=== PATIENT | female | born 1940 | race Caucasian/White ===

== ENCOUNTER → 2017-12-12 13:13 | Outpatient (CLI) | payer MEDICARE, SELFPAY ==
[2017-12-12 13:54] LABS: Basophils # 0.1 K/mm3 (0-0.2); Basophils % 0.5 % (0.1-2.0); Eosinophils # 0.3 K/mm3 (0.0-0.4); Eosinophils % 2.4 % (0.1-12.0); Hematocrit 31.1 % (37.0-47.0); Hemoglobin 9.7 g/dL (12.2-16.2); Lymphocytes # 3.6 K/mm3 (0.7-4.5); Lymphocytes % 26.2 K/mm3 (10-50); Mean Corpuscular Hemoglobin 24.5 pg (27.0-31.2); Mean Corpuscular Volume 78.9 fl (81-99); Mean Platelet Volume 7.7 fl (7.4-10.4); Monocytes # 0.7 K/mm3 (0.1-1.0); Monocytes % 5.2 % (1.7-9.3); Neutrophils % 65.7 % (37.0-80.0); Platelet Count 584 K/mm3 (142-424); Red Blood Count 3.95 M/mm3 (4.20-5.40); Red Cell Distribution Width 15.3 % (11.5-17.5); White Blood Count 13.8 K/mm3 (4.8-10.8)
[2017-12-12 14:45] LABS: Alanine Aminotransferase 11 U/L (12-78); Albumin Level 3.3 gm/dL (3.4-5.0); Albumin/Globulin Ratio 0.9 (1.1-1.8); Alkaline Phosphatase 117 U/L (46-116); Anion Gap 10.7 mEq/L (5-15); Aspartate Amino Transferase 17 U/L (15-37); Bilirubin,Total 0.3 mg/dL (0.2-1.0); Blood Urea Nitrogen 11 mg/dL (7-18); Calcium 9.5 mg/dL (8.5-10.1); Carbon Dioxide 32 mmol/L (21.0-32.0); Chloride 105 mmol/L (98-107); Creatinine,Serum 1.27 mg/dL (0.55-1.02); Estimated Glomerular Filt Rate 41 ml/min (>60); GFR (African American) 50 ML/MIN (>60); Globulin 3.5 gm/dl (1.3-3.2); Potassium 3.7 mmoL/L (3.5-5.1); Sodium 144 mmol/L (136-145); Total Protein,Serum 6.8 gm/dL (6.4-8.2)
[2017-12-12 15:28] LABS: Glucose 49 mg/dL (74-106)
== END ==
PROVIDERS: PCP Family Medicine; Visit Provider Internal Medicine
DX: C81.90 Hodgkin lymphoma, unspecified, unspecified site (principal)
CPT/HCPCS: 36415; 80053; 85025

== ENCOUNTER → 2017-12-13 09:53 | Outpatient (CLI) | payer MEDICARE, SELFPAY ==
--- NOTE | 2017-12-13 09:58 | CT_ITS ---
CT abdomen pelvis w con CLINICAL INDICATION: ITS.REASON: HODGKINS DISEASE ORDERING PHYSICIAN: Naren Barahona MD PATIENT AGE: 77 years COMPARISON: None TECHNIQUE: Axial images obtained with sagittal and coronal reformats. PROCEDURE: Oral Contrast: Redicat IV Contrast: 75 mL Isovue-370 performed in conjunction with the chest CT . FINDINGS: The liver, gallbladder, pancreas, adrenal glands, and kidneys have an unremarkable appearance. No evidence of retroperitoneal or intraperitoneal adenopathy. No intestinal obstruction or free air. There are postsurgical changes from a prior right hemicolectomy with patent enterocolic anastomosis. There is diverticulosis of the sigmoid colon without diverticulitis. Prior hysterectomy. Unremarkable appearing urinary bladder. No pelvic mass abnormal fluid collection or adenopathy evident. No inguinal adenopathy. Atheromatous calcifications involve the aorta and its branches. Degenerative changes are present in the lumbar spine lumbar scoliosis convex left. No bony destructive process evident IMPRESSION: 1. No evidence of abdominal or pelvic adenopathy. 2. Oh surgical and nonacute findings as discussed above.
--- NOTE | 2017-12-13 09:58 | CT_ITS ---
CT chest w con HISTORY: ITS.REASON: HODGKINS DISEASE ORDERING PHYSICIAN: Naren Barahona MD PATIENT AGE: 77 years TECHNIQUE: Axial images obtained following the administration of 75 mL of Isovue 370 . Sagittal, and coronal reformatted images are also generated and reviewed. COMPARISON: None FINDINGS: There is a 12 mm isodensity in the lower pole of the thyroid gland on the left towards the isthmus. There is adenopathy in the right axillary region and infraclavicular area. Multiple lymph nodes are present measuring up to 2.6 x 1.9 cm. In addition, there is a rounded fluid density in the right axillary area measuring 4 x 3.2 cm probably related to postoperative seroma. There are few small nodes in the mediastinum. Largest cluster of nodes is in the aortopulmonic window measuring 2.2 x 1.5 cm. Normal heart size. No hilar adenopathy. Coronary artery calcifications are present. No pericardial thickening. There is a patchy area of infiltrate or atelectasis in the right lower lobe posteriorly faint nonspecific groundglass opacity is present in the superior segment of the right lower lobe medially at 8 mm. There are scattered calcified granulomas. There are degenerative changes in the thoracic spine. Degenerative changes are present at the sternoclavicular joints. No destructive bony lesion evident. IMPRESSION: 1. Right axillary adenopathy with probable postoperative seroma in the right axilla 2. Small mediastinal lymph nodes. No hilar adenopathy. 3. Atelectasis or infiltrate with faint groundglass opacity in the right lower lobe
== END ==
PROVIDERS: Family Provider Family Medicine; PCP Family Medicine; Visit Provider Internal Medicine
DX: C81.90 Hodgkin lymphoma, unspecified, unspecified site (principal)
CPT/HCPCS: 71260; 74177; Q9967

== ENCOUNTER 2017-12-18 11:05 | Outpatient (CLI) | payer MEDICARE, SELFPAY ==
[2017-12-18 11:50] VITALS: BMI 30.2
[2017-12-18 13:10] VITALS: BP 189/102; PULSE 80; RESP 18; TEMP 36.4; O2SAT 95
[2017-12-18 13:25] VITALS: BP 209/113; PULSE 84; RESP 18
[2017-12-18 13:40] VITALS: BP 203/74; PULSE 85; RESP 18
[2017-12-18 14:00] VITALS: BP 190/64; PULSE 94; RESP 18
--- NOTE | 2017-12-18 14:24 | XR_ITS ---
XR elbow RT min 3V HISTORY: ITS.REASON: FALL W/INJURY ORDERING PHYSICIAN: Naren Barahona MD PATIENT AGE: 77 years COMPARISON: None FINDINGS: No fracture or dislocation evident. Minimal hypertrophic changes are present along the lateral condyle region. There is a small anterior fat pad however this may be a normal variant. No displaced posterior fat pad is evident IMPRESSION: No acute finding
--- NOTE | 2017-12-18 14:24 | XR_ITS ---
XR knee RT 3V HISTORY: Right knee pain following injury ORDERING PHYSICIAN: Naren Barahona MD PATIENT AGE: 77 years COMPARISON: 10/15/2017 FINDINGS: There are severe osteoarthritic changes of all 3 compartments worse at the medial compartment and patellofemoral joint with chondrocalcinosis. No acute fracture or dislocation. Prominent osteophyte formation is present about the knee joint and in the superior patellar region. IMPRESSION: 1. No acute fracture. 2. Severe osteoarthritis with chondrocalcinosis
--- NOTE | 2017-12-18 14:24 | XR_ITS ---
XR knee LT 3V HISTORY: Pain following injury ORDERING PHYSICIAN: Naren Barahona MD PATIENT AGE: 77 years COMPARISON: 04/10/2016 FINDINGS: There is a total knee prosthesis present which is in good position. No acute fracture or dislocation is evident. A well-circumscribed oval lucency is present at the distal femur centrally unchanged. There is a small knee joint effusion. Periarticular calcification present as before. IMPRESSION: 1. No acute finding. 2. Prior total knee replacement with knee joint effusion
== END 2017-12-18 14:00 | disposition home or self-care (01) ==
PROVIDERS: Family Provider Family Medicine; PCP Family Medicine; Visit Provider Internal Medicine
DX: M25.561 Pain in right knee; M25.521 Pain in right elbow; Z51.11 Encounter for antineoplastic chemotherapy; C81.90 Hodgkin lymphoma, unspecified, unspecified site; M25.562 Pain in left knee
CPT/HCPCS: 73080; 73562; 96413; J9271

== ENCOUNTER 2018-01-06 10:34 | Outpatient (CLI) | payer MEDICARE, SELFPAY ==
[2018-01-06 10:53] LABS: Basophils % 0.3 % (0.1-2.0); Eosinophils # 0.1 K/mm3 (0.0-0.4); Eosinophils % 0.4 % (0.1-12.0); Hematocrit 33.1 % (37.0-47.0); Hemoglobin 9.9 g/dL (12.2-16.2); Lymphocytes # 4.6 K/mm3 (0.7-4.5); Lymphocytes % 34.6 K/mm3 (10-50); Mean Corpuscular Hemoglobin 23.3 pg (27.0-31.2); Mean Corpuscular Volume 77.5 fl (81-99); Mean Platelet Volume 8.3 fl (7.4-10.4); Monocytes # 0.7 K/mm3 (0.1-1.0); Monocytes % 4.9 % (1.7-9.3); Neutrophils # 7.9 K/mm3 (1.8-7.8); Neutrophils % 59.9 % (37.0-80.0); Platelet Count 456 K/mm3 (142-424); Red Blood Count 4.27 M/mm3 (4.20-5.40); White Blood Count 13.3 K/mm3 (4.8-10.8)
[2018-01-06 11:43] VITALS: BMI 30.2
[2018-01-06 12:15] VITALS: BP 233/92; PULSE 64; RESP 18; TEMP 36.6; O2SAT 99
[2018-01-06 12:30] VITALS: BP 233/104; PULSE 72; RESP 18
[2018-01-06 12:31] LABS: Alanine Aminotransferase 25 U/L (12-78); Albumin Level 3.5 gm/dL (3.4-5.0); Albumin/Globulin Ratio 1.1 (1.1-1.8); Alkaline Phosphatase 87 U/L (46-116); Anion Gap 6.8 mEq/L (5-15); Aspartate Amino Transferase 18 U/L (15-37); Bilirubin,Total 0.4 mg/dL (0.2-1.0); Blood Urea Nitrogen 21 mg/dL (7-18); Carbon Dioxide 37 mmol/L (21.0-32.0); Chloride 100 mmol/L (98-107); Creatinine Clearance Estimated 52 mL/min (0-300); Creatinine,Serum 1.17 mg/dL (0.55-1.02); Estimated Glomerular Filt Rate 45 ml/min (>60); GFR (African American) 54 ML/MIN (>60); Globulin 3.3 gm/dl (1.3-3.2); Glucose 96 mg/dL (74-106); Potassium 3.8 mmoL/L (3.5-5.1); Sodium 140 mmol/L (136-145); Total Protein,Serum 6.8 gm/dL (6.4-8.2)
[2018-01-06 12:34] LABS: Ferritin 21 ng/mL (8-388)
[2018-01-06 12:45] VITALS: BP 230/86; PULSE 68; RESP 18
[2018-01-06 13:00] VITALS: BP 246/86; PULSE 68; RESP 16
[2018-01-06 13:15] VITALS: BP 235/93; PULSE 69; RESP 18
[2018-01-07 08:23] LABS: Iron 38 ug/dL (27-139); UIBC 381 ug/dL (118-369)
[2018-01-08 18:18] LABS: Iron Saturation 9 % (15-55)
== END 2018-01-06 13:40 | disposition home or self-care (01) ==
LOC: INF 10:35
PROVIDERS: Family Provider Family Medicine; PCP Family Medicine; Visit Provider Internal Medicine
DX: C81.90 Hodgkin lymphoma, unspecified, unspecified site (principal); D64.9 Anemia, unspecified; Z51.11 Encounter for antineoplastic chemotherapy
CPT/HCPCS: 36415; 80053; 82728; 83550; 85025; 96413; J9271

== ENCOUNTER 2018-01-29 09:55 | Outpatient (CLI) | payer MEDICARE, SELFPAY ==
[2018-01-29 09:57] VITALS: BMI 27.0
[2018-01-29 10:24] LABS: Basophils % 0.2 % (0.1-2.0); Eosinophils % 0.3 % (0.1-12.0); Hemoglobin 9.3 g/dL (12.2-16.2); Lymphocytes # 2.1 K/mm3 (0.7-4.5); Lymphocytes % 21.7 K/mm3 (10-50); Mean Corpuscular Hemoglobin 23.7 pg (27.0-31.2); Mean Platelet Volume 7.3 fl (7.4-10.4); Monocytes # 0.2 K/mm3 (0.1-1.0); Monocytes % 1.9 % (1.7-9.3); Neutrophils # 7.5 K/mm3 (1.8-7.8); Neutrophils % 75.9 % (37.0-80.0); Platelet Count 475 K/mm3 (142-424); Red Blood Count 3.93 M/mm3 (4.20-5.40); Red Cell Distribution Width 17.6 % (11.5-17.5); White Blood Count 9.9 K/mm3 (4.8-10.8)
[2018-01-29 10:47] LABS: Alanine Aminotransferase 18 U/L (12-78); Albumin Level 3.4 gm/dL (3.4-5.0); Albumin/Globulin Ratio 0.9 (1.1-1.8); Alkaline Phosphatase 104 U/L (46-116); Anion Gap 12.3 mEq/L (5-15); Aspartate Amino Transferase 5 U/L (15-37); Bilirubin,Total 0.3 mg/dL (0.2-1.0); Blood Urea Nitrogen 18 mg/dL (7-18); Calcium 8.9 mg/dL (8.5-10.1); Carbon Dioxide 32 mmol/L (21.0-32.0); Chloride 97 mmol/L (98-107); Creatinine Clearance Estimated 37 mL/min (0-300); Creatinine,Serum 1.49 mg/dL (0.55-1.02); Estimated Glomerular Filt Rate 34 ml/min (>60); Ferritin 22 ng/mL (8-388); GFR (African American) 41 ML/MIN (>60); Globulin 3.8 gm/dl (1.3-3.2); Glucose 275 mg/dL (74-106); Potassium 4.3 mmoL/L (3.5-5.1); Sodium 137 mmol/L (136-145); Total Protein,Serum 7.2 gm/dL (6.4-8.2)
[2018-01-29 12:15] VITALS: BP 154/72; PULSE 78; RESP 20; TEMP 36.5
[2018-01-29 12:30] VITALS: BP 150/67; PULSE 81; RESP 20
[2018-01-29 12:45] VITALS: BP 163/62; PULSE 76; RESP 18
[2018-01-29 13:00] VITALS: BP 163/62; PULSE 76; RESP 18
[2018-01-30 07:19] LABS: Iron 35 ug/dL (27-139); UIBC 377 ug/dL (118-369)
[2018-01-30 11:54] LABS: Iron Saturation 8 % (15-55)
== END 2018-01-29 13:00 | disposition home or self-care (01) ==
LOC: INF 09:55
PROVIDERS: Family Provider Family Medicine; PCP Family Medicine; Visit Provider Internal Medicine
DX: Z51.11 Encounter for antineoplastic chemotherapy (principal); C81.90 Hodgkin lymphoma, unspecified, unspecified site
CPT/HCPCS: 80053; 82728; 83550; 85025; 96413; J9271

== ENCOUNTER → 2018-02-21 07:25 | Day surgery (SDC) | payer MEDICARE, SELFPAY ==
[2018-02-19 13:09] VITALS: BMI 30.5
--- NOTE | 2018-02-21 08:23 | SUR.PREOP ---
Surgery cancelled today due to plavix not being held. Spoke with Dr. Naylor' office about plavix and he OK'D patient to hold plavix for 5 days prior to surgery. Office to send clearance note. Spoke with Dr. Schulz's office about rescheduling patient's surgery for Saturday () so that patient can receive her treatment that day. Adelina is to call back. Patient dressed and wants to go home. discussed with patient about going off plavix for 5 days and told her I would notify her of rescheduled surgery time.
== END ==
PROVIDERS: Family Provider Family Medicine; PCP Family Medicine; Visit Provider Surgery
DX: Z53.8 Procedure and treatment not carried out for other reasons (principal)

== ENCOUNTER 2018-02-26 06:03 | Day surgery (SDC) | payer MEDICARE, SELFPAY ==
[2018-02-26] VITALS (21 sets, daily range): BP systolic 113–232; BP diastolic 51–105; PULSE 77–98; RESP 16–20; TEMP 36.3–36.6; O2SAT 95–100; BMI 30.5
[2018-02-26 07:03] LABS: Basophils # 0.1 K/mm3 (0-0.2); Basophils % 0.5 % (0.1-2.0); Eosinophils # 0.2 K/mm3 (0.0-0.4); Eosinophils % 2.1 % (0.1-12.0); Hematocrit 27.7 % (37.0-47.0); Hemoglobin 8.9 g/dL (12.2-16.2); Lymphocytes # 2.6 K/mm3 (0.7-4.5); Lymphocytes % 25.5 K/mm3 (10-50); Mean Corpuscular Hemoglobin 25.6 pg (27.0-31.2); Mean Corpuscular Volume 79.8 fl (81-99); Mean Platelet Volume 7.8 fl (7.4-10.4); Monocytes # 0.5 K/mm3 (0.1-1.0); Monocytes % 4.6 % (1.7-9.3); Neutrophils # 6.9 K/mm3 (1.8-7.8); Neutrophils % 67.4 % (37.0-80.0); Platelet Count 384 K/mm3 (142-424); Red Blood Count 3.47 M/mm3 (4.20-5.40); Red Cell Distribution Width 19.3 % (11.5-17.5); White Blood Count 10.2 K/mm3 (4.8-10.8)
[2018-02-26 07:18] LABS: POC Glucose,Bedside 117 mg/dL (70-110)
--- NOTE | 2018-02-26 07:28 | P.PN_ITS ---
[facility] Anesthesia Checklist - Patient Identification Patient Identification: Arm Band - Structural Data Admitted From: Home Planned Operative Procedure/s: port a cath placement Consent for Planned Operative Procedure(s) Verified: Yes Verified Documents: Surgical Consent, History and Physical - NPO Status Verified Time NPO: 00:00 - Additional verifications Anesthesia Reactions: No - Airway Assessment C-Spine Mobility Assessed: Yes (mp2) TMJ Mobility Assessed: Yes - Neurological Assessment Level of Consciousness: Awake, Alert - Anesthesia Plan Anesthesia Risk discussed: Yes Anesthesia Plan: Verified ASA Class: III Anesthesia Type: General [facility] Anesthesia HX I have reviewed the patient's past medical history: Yes Medical History: Reports:: Arrhythmia, Atrial Fibrillation, Cancer (COLON), Cerebrovascular Accident, Diabetes Mellitus Type 2, Hyperlipidemia, Hypertension , Migraine, Transient Ischemic Attacks (TIA) Denies:: Diabetes Mellitus Type 1, MRSA, Seizures Other Medical History: Reports: Arthritis, Cataracts, Chemotherapy. Denies: Blood Transfusion Reaction Laterality Cases: Right: Carpal Tunnel Release, Lumpectomy, Bilateral: Tonsillectomy Other Surgeries: Yes: Cancer Surgery, Colonoscopy, EGD, Hysterectomy-Total Amputation: No Fractures: No *Family Hx:: Asthma, Cancer, Coronary Artery Disease, Heart Attack, Hypertension , Kidney Disease
[2018-02-26 07:34] LABS: Alanine Aminotransferase 20 U/L (12-78); Albumin Level 3.2 gm/dL (3.4-5.0); Albumin/Globulin Ratio 0.8 (1.1-1.8); Alkaline Phosphatase 90 U/L (46-116); Anion Gap 9.8 mEq/L (5-15); Aspartate Amino Transferase 11 U/L (15-37); Bilirubin,Total 0.3 mg/dL (0.2-1.0); Blood Urea Nitrogen 16 mg/dL (7-18); Carbon Dioxide 31 mmol/L (21.0-32.0); Chloride 103 mmol/L (98-107); Creatinine Clearance Estimated 49 mL/min (0-300); Creatinine,Serum 1.25 mg/dL (0.55-1.02); Estimated Glomerular Filt Rate 42 ml/min (>60); GFR (African American) 50 ML/MIN (>60); Globulin 3.8 gm/dl (1.3-3.2); Glucose 124 mg/dL (74-106); Potassium 3.8 mmoL/L (3.5-5.1); Sodium 140 mmol/L (136-145)
--- NOTE | 2018-02-26 08:07 | FL_ITS ---
FL guided PICC placement CLINICAL INDICATION: ITS.REASON: IN OR, PORT PLACENEMT ORDERING PHYSICIAN: Ahsan Schulz MD PATIENT AGE: 77 years Fluoroscopy time: 1 minute and 15 seconds COMPARISON: None FINDINGS: Single image submitted with the C-arm shows the Port-A-Cath tip in the region superior vena cava IMPRESSION: Status post Port-A-Cath placement
--- NOTE | 2018-02-26 08:52 | P.OP_ITS ---
Date of procedure: 02/26/18 Pre-op Diagnosis:: Lymphoma Post-op Diagnosis:: Same Procedure performed:: Port-A-Cath placement (left subclavian vein access) Surgeon:: Ahsan Schulz MD CUSTOMER SUPPORT ADVISOR:: Other Anesthesia: LMA Estimated blood loss (mL): 10 Operative findings:: Tip confirmed with fluoroscopy Flushed with 8 mL of heparinized saline Operative note:: After informed consent was obtained, the patient was taken to the operating room and placed in the supine position. General anesthesia with laryngeal mask airway was achieved. The patient's left chest and neck were prepped and draped in a sterile fashion. A large bore needle was utilized to access the left subclavian vein. A guidewire was placed in position and confirmed with fluoroscopy. Transverse skin incision was made at the site of the guidewire exit. The deeper subcutaneous tissue was dissected with electrocautery. A dilator with sheath was placed over the guidewire. Fluoroscopy was utilized to confirm placement. The wire and dilator were removed. The catheter was placed in position through the sheath and confirmed with fluoroscopy. The catheter was secured to the port hub. The port hub was secured to the underlying fascia with interrupted Prolene. The port was flushed with saline without difficulty. The deep subcutaneous tissue was reapproximated with interrupted Vicryl and skin was closed with 4-0 Monocryl in an interrupted fashion. The port was accessed and then flushed with 8 mL of heparinized saline. Washings were applied and the port access was maintained for chemotherapy later today. The patient was transferred to recovery in stable condition. Chest x-rays pending. Condition: stable Disposition: PACU Complications:: No immediate
--- NOTE | 2018-02-26 09:01 | P.PN_ITS ---
[facility] Anesthesia Record Part I Intake, IV Amount: 500 Estimated blood loss (mL): 10 Urine output (mL): 0 Blood Products used (#): none Blood Pressure: 160/77 SaO2: 95 Pulse Rate: 88 Respiratory Rate: 16 Temperature: 97.8 F Patient is:: Awake Stable to PACU at:: 08:53
--- NOTE | 2018-02-26 09:01 | HMH.ANESII ---
[facility] Anesthesia Record Part II Discharge Time: 09:23 Destination: Phase II PACU nurse assessment reviewed?: Yes Patient Condition:: Good Anesthesia Complications:: None
[2018-02-26 09:28] LABS: POC Glucose,Bedside 98 mg/dL (70-110)
--- NOTE | 2018-02-26 10:11 | XR_ITS ---
XR chest portable HISTORY: ITS.REASON: post op portacath placement ORDERING PHYSICIAN: Ahsan Schulz MD PATIENT AGE: 77 years COMPARISON: 10/15/2017 FINDINGS: Left subclavian Port-A-Cath has been placed. The tip is in good position in the region of the superior vena cava. No evidence of pneumothorax. Lungs are clear bilaterally. No acute bony anomalies. IMPRESSION: Left subclavian Port-A-Cath in good position without evidence of pneumothorax
--- NOTE | 2018-02-26 10:39 | PC.NURSE ---
0915-Notified anesthesia of elevated BP, order received for Hydralazine 10mg IV now. 09-FSBS 98. 929-Notified Dr Schulz of pt c/o chronic pain and she hasn't taken home meds for 2 days. Orders received for her to take home meds in post-op. 40-Anesthesia notified of no improvement in BP, pt c/o chronic pain to BLE and lower back rating 8/10, and FSBS. Orders received for Fentanyl 50mcg and repeat Hydralazine 10mg 30min after first dose. 1000-Notified anesthesia of BP improvement 173/79 and no improvement in pain level. Anesthesia ok for d/c to post-op and home meds given for pain.
--- NOTE | 2018-02-26 15:46 | PC.NURSE ---
After chemo infusion finished, patient's port-a-cath to left chest deaccessed. I used 1 10ml saline flush and 1 5ml Heparin flush 500 units flush to cap off port. Owen needle removed easily. Site was bruised, no active bleeding noted. New sterile dressing applied of 4x4's and tegaderm. Patient educated to remove dressing in 48 hours and monitor for signs of infection. Patient tolerated the removal of the port-a-cath needle well. Denied pain/distress. Saline Flush and Heparin flush given at 1345.
== END 2018-02-26 13:50 | disposition home or self-care (01) ==
LOC: OR 06:06
PROVIDERS: Family Provider Family Medicine; PCP Family Medicine; Visit Provider Surgery
DX: C81.24 Mixed cellularity Hodgkin lymphoma, lymph nodes of axilla and upper limb (principal); Z79.4 Long term (current) use of insulin; Z79.899 Other long term (current) drug therapy; E11.9 Type 2 diabetes mellitus without complications; I10 Essential (primary) hypertension; I48.91 Unspecified atrial fibrillation
CPT/HCPCS: 36561; 71045; 77001; 80053; 82962; 85025; 96374; 96413; C1788; J1642; J2405; J9271

== ENCOUNTER → 2018-03-06 12:18 | Outpatient (CLI) | payer MEDICARE, SELFPAY ==
[2018-03-06 12:18] VITALS: BMI 27.8
[2018-03-06 13:23] LABS: Basophils # 0.1 K/mm3 (0-0.2); Basophils % 0.5 % (0.1-2.0); Eosinophils # 0.2 K/mm3 (0.0-0.4); Eosinophils % 2.2 % (0.1-12.0); Hematocrit 29.9 % (37.0-47.0); Hemoglobin 9.1 g/dL (12.2-16.2); Lymphocytes # 2.7 K/mm3 (0.7-4.5); Lymphocytes % 26.4 K/mm3 (10-50); Mean Corpuscular HGB Conc 30.6 g/dL (31.8-35.4); Mean Corpuscular Hemoglobin 25.4 pg (27.0-31.2); Mean Corpuscular Volume 83.1 fl (81-99); Mean Platelet Volume 7.3 fl (7.4-10.4); Monocytes # 0.5 K/mm3 (0.1-1.0); Monocytes % 4.7 % (1.7-9.3); Neutrophils # 6.7 K/mm3 (1.8-7.8); Neutrophils % 66.2 % (37.0-80.0); Platelet Count 384 K/mm3 (142-424); Red Cell Distribution Width 19.9 % (11.5-17.5); White Blood Count 10.1 K/mm3 (4.8-10.8)
[2018-03-06 14:11] LABS: Alanine Aminotransferase 13 U/L (12-78); Albumin Level 3.2 gm/dL (3.4-5.0); Albumin/Globulin Ratio 0.9 (1.1-1.8); Alkaline Phosphatase 94 U/L (46-116); Anion Gap 11.6 mEq/L (5-15); Aspartate Amino Transferase 11 U/L (15-37); Bilirubin,Total 0.3 mg/dL (0.2-1.0); Blood Urea Nitrogen 17 mg/dL (7-18); Calcium 8.7 mg/dL (8.5-10.1); Carbon Dioxide 33 mmol/L (21.0-32.0); Chloride 98 mmol/L (98-107); Creatinine Clearance Estimated 34 mL/min (0-300); Creatinine,Serum 1.63 mg/dL (0.55-1.02); Estimated Glomerular Filt Rate 31 ml/min (>60); GFR (African American) 37 ML/MIN (>60); Globulin 3.6 gm/dl (1.3-3.2); Glucose 149 mg/dL (74-106); Potassium 3.6 mmoL/L (3.5-5.1); Sodium 139 mmol/L (136-145); Total Protein,Serum 6.8 gm/dL (6.4-8.2)
== END ==
PROVIDERS: Family Provider Family Medicine; PCP Family Medicine; Visit Provider Nurse Practitioner Family
DX: L03.115 Cellulitis of right lower limb (principal)
CPT/HCPCS: 36415; 71250; 74176; 80053; 85025

== ENCOUNTER 2018-05-12 14:02 | Outpatient (CLI) | payer MEDICARE, SELFPAY ==
--- NOTE | 2018-05-12 15:28 | CT_ITS ---
CT chest w con HISTORY: Follow-up lymphoma ITS.REASON: HODGKINS LYMPHOMA ORDERING PHYSICIAN: Naren Barahona MD PATIENT AGE: 78 years COMPARISON: 03/06/2018 TECHNIQUE: Axial images obtained following the administration of 75 mL of Isovue 370 . Sagittal, and coronal reformatted images are also generated and reviewed. All CT scans at the facility use one or more dose reduction, viz: automated exposure control; ma/kV adjustment per patient size (including targeted exams where dose is matched to indication; i.e. head); or iterative reconstruction technique. FINDINGS: There is a nodular area in the isthmus of the thyroid gland on the left and 8 mm not significantly changed. Scattered small mediastinal lymph nodes are stable. There are coronary artery calcifications. Mediport catheter is present from left subclavian approach. No hilar adenopathy. There is a small nodes deep to the medial aspect of the pectoralis major which is slightly larger compared to the previous study measuring approximately 17 x 11 mm previously 11 x 9 mm.. There is an additional node in the right axilla more inferior which measures 18 x 13 mm previously 15 x 11 mm. Postsurgical changes are present in the right axilla. No adenopathy evident in the left axilla. There are calcified granulomas in the lungs. Fibrotic changes are present in the right lower lobe posteriorly. A small nodular density is present in the right lower lobe medially have an a bilobular appearance measuring 9 x 6 mm probably not significantly changed. No effusions or infiltrates. IMPRESSION: 1. There are at least 2 right axillary lymph nodes which are slightly larger compared to the previous study. 2. No other significant changes. Stable right lower lobe nodule with fibrotic changes in the right lower lobe and old granulomatous disease.
--- NOTE | 2018-05-12 15:32 | CT_ITS ---
CT abdomen w con CLINICAL INDICATION: Follow-up lymphoma ITS.REASON: HODGKINS LYMPHOMA ORDERING PHYSICIAN: Naren Barahona MD PATIENT AGE: 78 years COMPARISON: 03/06/2018 TECHNIQUE: Axial images obtained with sagittal and coronal reformats. All CT scans at the facility use one or more dose reduction, viz: automated exposure control; ma/kV adjustment per patient size (including targeted exams where dose is matched to indication; i.e. head); or iterative reconstruction technique. PROCEDURE: Oral Contrast: Redicat IV Contrast: 75 mL's of Isovue-370 performed in conjunction with the chest CT. FINDINGS: The liver, gallbladder, spleen, adrenal glands, pancreas and kidneys have an unremarkable appearance. There is mild retroperitoneal adenopathy. There is a node present in the aortocaval region measuring 18 x 11 mm previously measuring 9 x 7 mm. Left para-aortic lymph nodes are present measuring up to 17 x 11 mm previously measuring 14 x 9 mm. A chain small lymph nodes present in the left retroperitoneal region and a more prominent on today's exam compared to the previous study.. This chain of nodes extends for a length of approximately 6 cm. No intra-abdominal adenopathy evident. Degenerative changes are present in the lumbar spine. IMPRESSION: Mildly enlarged retroperitoneal lymph nodes are present on the left and have increased in size since previous exam.
[2018-05-12 15:45] LABS: Blood Urea Nitrogen 19 mg/dL (7-18); Creatinine,Serum 1.34 mg/dL (0.55-1.02); Estimated Glomerular Filt Rate 38 ml/min (>60); GFR (African American) 46 ML/MIN (>60)
[2018-05-12 16:00] VITALS: BMI 27.7
[2018-05-12 16:30] LABS: Basophils # 0.1 K/mm3 (0-0.2); Basophils % 0.8 % (0.1-2.0); Eosinophils # 0.5 K/mm3 (0.0-0.4); Eosinophils % 5.2 % (0.1-12.0); Hematocrit 28.2 % (37.0-47.0); Hemoglobin 8.7 g/dL (12.2-16.2); Lymphocytes # 2.7 K/mm3 (0.7-4.5); Lymphocytes % 26.7 K/mm3 (10-50); Mean Corpuscular HGB Conc 30.7 g/dL (31.8-35.4); Mean Corpuscular Hemoglobin 25.2 pg (27.0-31.2); Mean Platelet Volume 7.2 fl (7.4-10.4); Monocytes # 0.6 K/mm3 (0.1-1.0); Monocytes % 5.8 % (1.7-9.3); Neutrophils # 6.2 K/mm3 (1.8-7.8); Neutrophils % 61.5 % (37.0-80.0); Platelet Count 577 K/mm3 (142-424); Red Blood Count 3.44 M/mm3 (4.20-5.40); Red Cell Distribution Width 15.7 % (11.5-17.5); White Blood Count 10.1 K/mm3 (4.8-10.8)
== END 2018-05-12 16:10 | disposition home or self-care (01) ==
PROVIDERS: PCP Family Medicine; Visit Provider Internal Medicine
DX: C81.90 Hodgkin lymphoma, unspecified, unspecified site (principal)
CPT/HCPCS: 71260; 74160; 82565; 84520; 85025; J1642

== ENCOUNTER 2018-05-14 12:30 | Outpatient (CLI) | payer MEDICARE, SELFPAY ==
[2018-05-14 13:30] VITALS: BP 138/39; PULSE 86; RESP 20; TEMP 36.3; O2SAT 98
[2018-05-14 13:45] VITALS: BP 117/35; PULSE 86; RESP 18
[2018-05-14 14:00] VITALS: BP 108/34; PULSE 85; RESP 18
== END 2018-05-14 15:10 | disposition home or self-care (01) ==
LOC: INF 12:42
PROVIDERS: Family Provider Family Medicine; PCP Family Medicine; Visit Provider Internal Medicine
DX: Z51.11 Encounter for antineoplastic chemotherapy (principal); C81.24 Mixed cellularity Hodgkin lymphoma, lymph nodes of axilla and upper limb
CPT/HCPCS: 96413; J9271

== ENCOUNTER 2018-06-05 19:53 | Inpatient (IN) ==
[2018-06-05 20:41] LABS: Microscopic, Urine URINE MICROSCOPIC (MICROSCOPIC)
--- NOTE | 2018-06-05 20:44 | Emergency Department Note ---
ED Disposition Clinical Impression: Hypokalemia Leukocytosis Qualifiers: Leukocytosis type: unspecified Qualified Code(s): D72.829 - Elevated white blood cell count, unspecified Anemia Qualifiers: Anemia type: other cause Other causes of anemia: other cause, not classified Qualified Code(s): D64.89 - Other specified anemias Non-Hodgkin lymphoma Qualifiers: Non-Hodgkin lymphoma type: unspecified type Lymphoma site: unspecified region Qualified Code(s): C85.90 - Non-Hodgkin lymphoma, unspecified, unspecified site Disposition: Admitted As Inpatient Condition on Discharge: Fair Time of Disposition: 22:07 - Critical Care Critical Care Time: Yes Attestation: On 06/05/18, the high probability of a clinically significant, sudden or life threatening deterioration of the following system(s) required my full and direct attention, intervention and personal management. The time I documented below is in addition to time spent performing reported procedures but includes the following listed in this critical care notation. Total Critical Care Time: 90 Vital system(s) involved:: Circulatory Failure, Renal Failure My critical care processes included: Assessment & monitoring of V/S, Initial and Re-exams, Data Review/Interpretation, Coordinating Care, Medication Orders and management, Documentation Medical Decision Making - Medical Records Medical records reviewed: Yes: I reviewed the patient's medical records. - Isidoro Inquiry Pt receiving controlled substance: No Vital Signs: 06/05/18 19:54 06/05/18 20:24 06/05/18 20:56 Temperature 98.8 F 98.8 F 98.7 F Temperature Source Oral Rectal Oral Pulse Rate Pulse Rate [Left Brachial] 90 91 H 98 H Respiratory Rate 16 18 16 Blood Pressure Blood Pressure [Left Arm] 114/52 126/60 116/74 Blood Pressure Mean [Left Arm] 72 82 88 02 Sat by Pulse Oximetry 95 92 L 95 Oxygen Delivery Method Nasal Cannula Room Air Room Air Oxygen Flow Rate (LPM) 2 06/05/18 21:46 06/05/18 22:24 06/05/18 22:32 Temperature 98.8 F 98.9 F Temperature Source Oral Oral Pulse Rate 103 H Pulse Rate [Left Brachial] 99 H 103 H Respiratory Rate 16 16 18 Blood Pressure 109/70 Blood Pressure [Left Arm] 153/93 115/70 Blood Pressure Mean [Left Arm] 113 85 02 Sat by Pulse Oximetry 97 96 Oxygen Delivery Method Nasal Cannula Nasal Cannula Nasal Cannula Oxygen Flow Rate (LPM) 2 2 2 06/05/18 23:16 Temperature Temperature Source Pulse Rate Pulse Rate [Left Brachial] 100 H Respiratory Rate 16 Blood Pressure Blood Pressure [Left Arm] 101/73 Blood Pressure Mean [Left Arm] 82 02 Sat by Pulse Oximetry 94 L Oxygen Delivery Method Oxygen Flow Rate (LPM) - Lab Data Lab results reviewed: Yes: I reviewed the patient's lab results. Lab Results 06/05/18 20:20: WBC 23.7 H*, RBC 3.06 L, Hgb 7.3 L*, Hct 24.7 L, MCV 80.5 L, MCH 24.0 L, MCHC 29.8 L, RDW 15.9, Plt Count 650 H, MPV 8.2, Neut % (Auto) 84.5 H, Lymph % (Auto) 11.3, [place] % (Auto) 3.7, Eos % (Auto) 0.3, Baso % (Auto) 0.2, Neut # (Auto) 20.0 H, Lymph # (Auto) 2.7, [place] # (Auto) 0.9, Eos # (Auto) 0.1, Baso # (Auto) 0.1, Total Counted 100, Neutrophils % (Manual) 85 H, Lymphocytes % (Manual) 12, Monocytes % (Manual) 3, Platelet Estimate Slight increase, Hypochromasia 1+ 06/05/18 20:20: Sodium 136, Potassium 2.7 L*, Chloride 98, Carbon Dioxide 28, Anion Gap 12.7, BUN 44 H, Creatinine 1.99 H, Estimated Creat Clear 31, Estimated GFR 24 L, Est GFR ( Amer) 29 L, Glucose 131 H, Calcium 8.4 L, Total Bilirubin 0.9, AST 17, ALT 10 L, Alkaline Phosphatase 122 H, Troponin I < 0.02, Total Protein 6.7, Albumin 2.0 L, Globulin 4.7 H, Albumin/Globulin Ratio 0.4 L 06/05/18 20:20: Lactic Acid 0.8 06/05/18 20:20: B-Natriuretic Peptide 75 06/05/18 20:30: Urine Color Yellow, Urine Appearance Clear, Urine pH 5.5, Ur Specific [place] 1.020, Urine Protein Trace, Urine Glucose (UA) Negative, Urine Ketones Negative, Urine Blood Negative, Urine Nitrate Negative, Urine Bilirubin Negative, Urine Urobilinogen 1.0, Ur Leukocyte Esterase Negative, Urine RBC None , Urine WBC 3-5, Ur Squamous Epith Cells Occasional, Urine Bacteria 2+, Hyaline Casts 10-20 06/05/18 22:35: Blood Type O Negative, Antibody Screen Negative, Crossmatch (AHG ) See Detail 06/05/18 22:35: Crossmatch (AHG) See Detail Result diagrams: 06/05/18 20:20 06/05/18 20:20 Orders (Tests/Meds): ED MEDICATIONS Generic Name Dose Route Start Last Admin Trade Name Freq PRN Reason Stop Dose Admin Aspirin 81 mg 06/06/18 09:00 Aspirin 81mg Enteric Coated Tablet PO 07/06/18 08:59 DAILY [facility] Carvedilol 3.125 mg 06/06/18 09:00 Coreg 3.125mg Tablet PO 07/06/18 08:59 BID [facility] Clopidogrel Bisulfate 75 mg 06/06/18 09:00 Plavix 75mg Tablet PO 07/06/18 08:59 DAILY [facility] Cyclobenzaprine HCl 10 mg 06/05/18 23:54 Flexeril 10mg Tablet PO 07/05/18 23:53 TID PRN muscle spasm Diazepam 10 mg 06/06/18 09:00 Valium 10mg Tablet PO 07/06/18 08:59 TID [facility] Diphenoxylate HCl/Atropine mg 06/05/18 23:54 Lomotil 2.5mg Tablet PO 07/05/18 23:53 QIDP PRN diarrhea Furosemide 40 mg 06/06/18 09:00 Lasix 20mg Tablet PO 07/06/18 08:59 DAILY [facility] Gabapentin 300 mg 06/06/18 09:00 Neurontin 300mg Capsule PO 07/06/18 08:59 TID [facility] Sodium Chloride 250 mls @ 25 mls/hr 06/05/18 23:54 Sod Chlor 0.9% 250ml Bag IV 06/06/18 21:29 .Q10H [facility] Levofloxacin/Dextrose 250 mg in 50 mls @ 100 mls/hr 06/07/18 21:45 Levaquin 250mg/50ml Premix IV 06/21/18 21:44 Q48H [facility] Protocol Sodium Chloride 1,000 mls @ 250 mls/hr 06/05/18 23:54 Sod Chlor 0.9% 1000ml Bag IV 06/06/18 02:29 .Q4H [facility] Piperacillin Sod/Tazobactam 50 mls @ 100 mls/hr 06/06/18 03:30 Sod 2.25 gm/ Sodium Chloride IV 06/19/18 21:29 Q6H [facility] Protocol Sodium Chloride 1,000 mls @ 50 mls/hr 06/05/18 23:54 06/05/18 23:54 Sod Chlor 0.9% 1000ml Bag IV 07/05/18 23:53 50 mls/hr .Q20H [facility] Administration Insulin Glargine 40 unit 06/06/18 09:00 Lantus Insulin 100units/Ml 10ml Vial SQ 07/06/18 08:59 DAILY [facility] Non-Formulary Medication 60 mg 06/06/18 09:00 Duloxetine Hcl [Cymbalta] PO 07/06/18 08:59 DAILY [facility] Non-Formulary Medication 1 tab 06/05/18 23:54 Hydrocodone PO Q4HP PRN pain Non-Formulary Medication 40 mg 06/06/18 09:00 Lisinopril [Lisinopril 40mg Tablet] PO 07/06/18 08:59 DAILY [facility] Non-Formulary Medication 20 mg 06/06/18 21:00 Simvastatin [Simvastatin] PO 07/06/18 20:59 HS [facility] Pantoprazole Sodium 40 mg 06/06/18 09:00 Protonix 40mg Tablet PO 07/06/18 08:59 BID [facility] Zolpidem Tartrate 10 mg 06/05/18 23:54 Ambien 10mg Tablet PO 07/05/18 23:53 HS PRN insomnia Discontinued Medications Generic Name Dose Route Start Last Admin Trade Name Freq PRN Reason Stop Dose Admin Sodium Chloride 250 mls @ 25 mls/hr 06/05/18 21:30 Sod Chlor 0.9% 250ml Bag IV 06/06/18 21:29 .Q10H [facility] Potassium Chloride/Water 100 mls @ 50 mls/hr 06/05/18 21:30 06/05/18 21:36 Potassium Chloride 20meq/100ml Ivpb IV 06/05/18 23:29 Not Given ONCE ONE Piperacillin Sod/Tazobactam 50 mls @ 100 mls/hr 06/05/18 21:30 06/05/18 21:36 Sod 2.25 gm/ Sodium Chloride IV 06/19/18 21:29 100 mls/hr Q6H [facility] Administration Protocol Levofloxacin/Dextrose 500 mg in 100 mls @ 100 mls/hr 06/05/18 21:31 06/05/18 22:20 Levaquin 500mg/100ml Premix IV 06/05/18 22:30 100 mls/hr ONCE ONE Administration Protocol Levofloxacin/Dextrose 250 mg in 50 mls @ 100 mls/hr 06/07/18 21:45 Levaquin 250mg/50ml Premix IV 06/21/18 21:44 Q48H [facility] Protocol Sodium Chloride 1,000 mls @ 250 mls/hr 06/05/18 22:30 06/05/18 22:20 Sod Chlor 0.9% 1000ml Bag IV 06/06/18 02:29 250 mls/hr .Q4H [facility] Administration Morphine Sulfate 2 mg 06/05/18 22:23 06/05/18 22:31 Morphine 2mg/Ml Syringe IV 06/05/18 22:24 2 mg ONCE ONE Administration Ondansetron HCl 4 mg 06/05/18 22:23 06/05/18 22:31 Zofran 4mg/2ml Vial IV 06/05/18 22:24 4 mg ONCE ONE Administration Potassium Chloride 60 meq 06/05/18 21:30 06/05/18 21:37 Klor-Con 20meq Tablet PO 06/05/18 21:31 60 meq ONCE ONE Administration ORDERS Category Date Time Status Transfuse RBC's [Red Blood Cells] Stat BBK 06/05/18 22:35 Results Type and Screen Stat K 06/05/18 22:[address] abdomen pelvis wo con Stat Cat Scan 06/05/18 21:[address] cervical spine wo con Stat Cat Scan 06/05/18 21:[address] chest wo con Stat Cat Scan 06/05/18 21:33 Taken XR chest portable Stat Exams 06/05/18 20:06 Taken Complete Blood Count Auto Diff Timed Lab 06/06/18 06:00 Ordered Comprehensive Metabolic Panel Timed Lab 06/06/18 06:00 Ordered Blood Culture Stat Micro 06/05/18 20:06 Received Urine Culture Stat Micro 06/05/18 20:30 Received ECG Request by /Omayra Stat Y 06/05/18 20:06 Stop Req - Radiology Data #1 Image(s): Chest Image Reviewed: Yes I reviewed the patient's radiology results Preliminary Findings: Normal/NAD - CT Data CT Scan: Abdomen, Pelvis, Chest Time Received: 22:[address] Reviewed: Yes: I have reviewed the patient's CT results, I have viewed the radiologist's interpretation Preliminary Findings: Abnormal Findings Narrative: Please see the radiologist's interpretation of the CT scan chest, CT scan abdomen and pelvis, without contrast - ECG Data Tracing #1 I reviewed this ECG and interpreted as documented below: No acute ischemic changes, heart rate 88, no ectopies. ECG normal with no acute: arrhythmias, ischemia, conduction abnormalities, chamber hypertrophy Normal Sinus Rhythm: Yes - Physician Consults Physician Consulted: Dr Naylor Time: 22:07 Reason -: Admission, Pt condition Comment/Response: Advised of patient's presentation and findings, informed of the plan to schedule patient for additional imaging tests, such as CT scan chest without contrast, CT scan abdomen and pelvis without contrast, as well as study patient on Levaquin per pharmacy protocol, as well as Zosyn, renal dose. Patient will receive 2 units of packed red blood cell transfusion, and lab values repeated in the morning. - Reevaluation(s) Time: 22:00 Reevaluation #1: Patient remains in distress, no significant improvement, will require admission at this point, given the multiple comorbid conditions, also leukocytosis and hypokalemia. General Adult HPI - General Chief complaint: Weakness Stated complaint: weakness Time Seen by Provider: 06/05/18 21:10 Mode of Arrival: EMS Limitations: Physical Limitations Description of Symptoms (Recalled from ER Triage Doc. by RN): EMS reports 2nd time out to patient's resident in 3 days for reports of weakness. Reports patient had been sitting in the chair for the last 3 days without being able to get up. PT smells like urine. Report from EMS patient's room air sat on arrival was 80%, and BLE have 3+ pitting edema. Pt reports she is weak. - History of Present Illness HPI narrative: This is a 78-year-old female patient brought to the emergency room by EMS with complaints of muscle aches, shortness of breath, extreme weakness, difficulty getting out of bed for the past 3 days. Patient is currently being treated for non-Hodgkin's lymphoma, however she is a breast and colon cancer survivor as well. She is a patient of Dr. Prince Barahona. She was seen here 3 days ago with similar complaints, as above, including body aches, shortness of breath and weakness. Dr. Barahona evaluated the patient in the emergency room and concluded that her body aches could be a side effect of the chemotherapy that she is recently been started on. She was discharged home at that time, with a hemoglobin of 7.8, and scheduled to have a follow-up as outpatient for repeat blood work. MD complaint: generalized weakness Onset (ago): day(s) Location: back, abdomen Radiation: neck Severity: moderate Severity scale (1-10): 4 Quality: burning Consistency: intermittent Relieving factors: rest Exacerbating factors: movement Associated symptoms: weakness - Related Data Home Medications Medication Instructions Recorded Confirmed aspirin 81 mg tablet,delayed 81 mg PO DAILY 12/04/17 06/05/18 release clopidogrel 75 mg tablet 75 mg PO DAILY 12/04/17 06/05/18 cyclobenzaprine 10 mg tablet 10 mg PO TID PRN 12/04/17 06/05/18 diazepam 10 mg tablet 10 mg PO TID 12/04/17 06/05/18 diphenoxylate-atropine 2.5 1 tab PO QIDP PRN tab 12/04/17 06/05/18 mg-0.025 mg tablet gabapentin 300 mg capsule 300 mg PO TID 12/04/17 06/05/18 hydrocodone 5 mg-acetaminophen 500 1 tab PO Q4HP PRN 12/04/17 06/05/18 mg tablet lisinopril 40 mg tablet 40 mg PO DAILY 12/04/17 06/05/18 pantoprazole 40 mg tablet,delayed 40 mg PO BID tab 12/04/17 06/05/18 release simvastatin 20 mg tablet 20 mg PO HS 12/04/17 06/05/18 zolpidem 10 mg tablet 10 mg PO HS PRN tab 12/04/17 06/05/18 Insulin Glargine,Hum.rec.anlog 40 unit SQ DAILY 12/18/17 06/05/18 [Lantus Insulin 100units/mL 10mL vial] duloxetine 60 mg capsule,delayed 60 mg PO DAILY 02/03/18 06/05/18 release Carvedilol [Carvedilol 3.125mg Tab] 3.125 mg PO BID 02/25/18 06/05/18 furosemide 20 mg tablet 40 mg PO DAILY tab 03/05/18 06/05/18 Allergies Allergy/AdvReac Type Severity Reaction Status Date / Time venom-honey bee Allergy Severe S-DIFF. Verified 06/02/18 09:56 [bee venom (honey bee)] BREATHING aspartame Allergy Intermediate I-HIVES Verified 06/02/18 09:56 [From ASPARTAME (FOOD/DRUG)] adhesive tape Allergy Unknown Verified 06/02/18 09:56 From ASPARTAME (FOOD/DRUG) Allergy Intermediate I-HIVES Uncoded 03/25/18 14:42 [facility] History I have reviewed the patient's past medical history: Yes Medical History: Reports:: Arrhythmia, Atrial Fibrillation, Cerebrovascular Accident, Hyperlipidemia, Hypertension, Migraine, Transient Ischemic Attacks ( TIA) Denies:: Cancer, Diabetes Mellitus Type 1, Diabetes Mellitus Type 2, MRSA, Seizures Other Medical History: Reports: Arthritis, Cataracts, Chemotherapy. Denies: Blood Transfusion Reaction Laterality Cases: Right: Carpal Tunnel Release, Lumpectomy, Bilateral: Tonsillectomy Other Surgeries: Yes: Cancer Surgery, Colonoscopy, EGD, Hysterectomy-Total Amputation: No Fractures: No - Social History Smoking Status: Current every day smoker Tobacco Type: cigarettes # Packs/Day (cigarettes): 1 #Yrs smoked (if former smoker): 63 Alcohol Intake: never Substance Use Type: denies use Occupational Status: unemployed, retired Housing: house Household Members: spouse - Psychiatric History Expresses thoughts of harming self/others: None Suicide Plan Description: No Plan Family Hx:: Asthma, Cancer, Coronary Artery Disease, Heart Attack, Hypertension , Kidney Disease MEAT COUNTER CLERK history: No MEAT COUNTER CLERK history ROS Obtained: Yes All systems reviewed & no additional complaints, Yes Systems reviewed as appropriate & no additional complaints - Respiratory Respiratory: Yes system reviewed and no additional complaints, except as docu, Yes as per HPI, Yes dyspnea - Neurologic Neurologic: Reports system reviewed and no additional complaints, except as docu , Reports as per HPI, Reports weakness Physical Exam - General General appearance: alert, in distress (moderate) - Head Head exam: atraumatic, normocephalic, normal inspection - Neck Neck exam: Present: normal inspection, full ROM, trachea midline. Absent: meningismus, lymphadenopathy - Chest Chest inspection: Present: normal inspection, symmetric chest wall rise. Absent : tenderness - Respiratory Respiratory exam: Present: normal lung sounds bilaterally. Absent: respiratory distress - Cardiovascular Cardiovascular exam: Present: regular rate, normal rhythm. Absent: JVD - Abdominal Exam Abdominal exam: Present: soft, normal bowel sounds. Absent: distention, tenderness, guarding - Extremities Exam Extremities exam: Present: normal inspection, full ROM, normal capillary refill. Absent: calf tenderness - Back Exam Back exam: Present: normal inspection, full ROM, tenderness (cervical paraspinal muscle tenderness) - Neurological Exam Neurological exam: Present: alert, oriented X3, CN II-XII intact. Absent: motor sensory deficit - Psychiatric Psychiatric exam: Present: normal affect, normal mood - Skin Skin exam: Present: warm, dry, intact, normal color - Lymphatic Lymphatic Findings: no adenopathy
[2018-06-05 20:45] LABS: Basophils # 0.1 K/mm3 (0-0.2); Basophils % 0.2 % (0.1-2.0); Eosinophils # 0.1 K/mm3 (0.0-0.4); Eosinophils % 0.3 % (0.1-12.0); Hematocrit 24.7 % (37.0-47.0); Lymphocytes # 2.7 K/mm3 (0.7-4.5); Lymphocytes % 11.3 K/mm3 (10-50); Mean Corpuscular HGB Conc 29.8 g/dL (31.8-35.4); Mean Corpuscular Volume 80.5 fl (81-99); Mean Platelet Volume 8.2 fl (7.4-10.4); Monocytes # 0.9 K/mm3 (0.1-1.0); Monocytes % 3.7 % (1.7-9.3); Neutrophils % 84.5 % (37.0-80.0); Platelet Count 650 K/mm3 (142-424); Red Blood Count 3.06 M/mm3 (4.20-5.40); Red Cell Distribution Width 15.9 % (11.5-17.5); White Blood Count 23.7 K/mm3 (4.8-10.8)
[2018-06-05 20:46] LABS: Appearance,Urine CLEAR (Clear); Blood, Urine Negative (Negative); Color,Urine YELLOW (Yellow); Glucose,Urine (UA) Negative (Negative); Ketones,Urine Negative (Negative); Leukocyte Esterase,Urine Negative (Negative); PH,Urine 5.5 (5.0-8.5); Protein,Urine TRACE (Negative)
[2018-06-05 20:49] LABS: Hemoglobin 7.3 g/dL (12.2-16.2)
[2018-06-05 20:59] LABS: Bilirubin,Urine Negative (Negative)
[2018-06-05 21:01] LABS: Alanine Aminotransferase 10 U/L (12-78); Albumin/Globulin Ratio 0.4 (1.1-1.8); Alkaline Phosphatase 122 U/L (46-116); Anion Gap 12.7 mEq/L (5-15); Aspartate Amino Transferase 17 U/L (15-37); Bilirubin,Total 0.9 mg/dL (0.2-1.0); Blood Urea Nitrogen 44 mg/dL (7-18); Calcium 8.4 mg/dL (8.5-10.1); Carbon Dioxide 28 mmol/L (21.0-32.0); Chloride 98 mmol/L (98-107); Globulin 4.7 gm/dl (1.3-3.2); Glucose 131 mg/dL (74-106); Sodium 136 mmol/L (136-145); Total Protein,Serum 6.7 gm/dL (6.4-8.2)
[2018-06-05 21:02] LABS: Potassium 2.7 mmoL/L (3.5-5.1)
[2018-06-05 21:25] LABS: Bacteria,Urine 2+ /lpf; Squamous Epithelial Cell,Urine Occasional #/hpf (0-5)
[2018-06-05 21:34] LABS: Lymphocytes % 12 % (10-50); Monocytes % 3 % (2-9); Neutrophils % 85 % (42-76); Total Cells Counted 100
[2018-06-05 21:35] LABS: Hypochromasia 1+
[2018-06-06 06:57] LABS: Basophils % 0.1 % (0.1-2.0); Eosinophils % 0.2 % (0.1-12.0); Lymphocytes # 1.7 K/mm3 (0.7-4.5); Lymphocytes % 9.7 K/mm3 (10-50); Mean Corpuscular Hemoglobin 23.4 pg (27.0-31.2); Mean Corpuscular Volume 80.8 fl (81-99); Mean Platelet Volume 8.5 fl (7.4-10.4); Monocytes # 0.5 K/mm3 (0.1-1.0); Monocytes % 2.9 % (1.7-9.3); Neutrophils # 15.5 K/mm3 (1.8-7.8); Platelet Count 589 K/mm3 (142-424); Red Blood Count 2.83 M/mm3 (4.20-5.40); Red Cell Distribution Width 15.8 % (11.5-17.5); White Blood Count 17.8 K/mm3 (4.8-10.8)
[2018-06-06 07:05] LABS: Albumin Level 1.8 gm/dL (3.4-5.0); Albumin/Globulin Ratio 0.4 (1.1-1.8); Anion Gap 10.9 mEq/L (5-15); Bilirubin,Total 1.1 mg/dL (0.2-1.0); Calcium 8.6 mg/dL (8.5-10.1); Globulin 4.7 gm/dl (1.3-3.2); Total Protein,Serum 6.5 gm/dL (6.4-8.2)
--- NOTE | 2018-06-06 07:11 | History & Physical Report ---
*Admission Date: 06/05/18 *Chief complaint: Pain *History of present illness: 78-year-old female with known lymphoma that presented to the emergency department for the second time this week with complaints of pain and inability to ambulate. Patient had been seen earlier in the week and was found to be anemic. When she returned to the emergency department last night she was slightly more anemic than before and white blood cell count had significantly elevated. Workup in the emergency department was negative for significant pneumonia or abnormal urine. Concern over sepsis was raised. Patient has been admitted for IV antibiotics while we await blood cultures. Her primary complaint this morning his pain as it has been for the last several weeks. It is believed that pain is coming from her malignancy or the chemotherapy used to treat her lymphoma. Patient takes hydrocodone on a daily basis and this only improves pain for maybe 2 hours at the most. But herself this morning can give limited history. Blood transfusion was refused and this is the patient's personal choice. [facility] History I have reviewed the patient's past medical history: Yes Medical History: Reports:: Arrhythmia, Atrial Fibrillation, Cerebrovascular Accident, Hyperlipidemia, Hypertension, Migraine, Transient Ischemic Attacks ( TIA) Denies:: Cancer, Diabetes Mellitus Type 1, Diabetes Mellitus Type 2, MRSA, Seizures Other Medical History: Reports: Arthritis, Cataracts, Chemotherapy. Denies: Blood Transfusion Reaction Laterality Cases: Right: Carpal Tunnel Release, Lumpectomy, Bilateral: Tonsillectomy Other Surgeries: Yes: Cancer Surgery, Colonoscopy, EGD, Hysterectomy-Total Amputation: No Fractures: No - *Social History Smoking Status: Current every day smoker Tobacco Type: cigarettes # Packs/Day (cigarettes): 1 #Yrs smoked (if former smoker): 63 Alcohol Intake: never Substance Use Type: denies use Occupational Status: unemployed, retired Housing: house Household Members: spouse - Psychiatric History Expresses thoughts of harming self/others: None Suicide Plan Description: No Plan *Family Hx:: Asthma, Cancer, Coronary Artery Disease, Heart Attack, Hypertension , Kidney Disease [employer] history: No [employer] history Review of Systems - Review of Systems Review of systems:: unable to obtain - *Neurologic Reports weakness Meds Home Medications Medication Instructions Recorded Confirmed Type aspirin 81 mg tablet,delayed 81 mg PO DAILY 12/04/17 06/05/18 History release clopidogrel 75 mg tablet 75 mg PO DAILY 12/04/17 06/05/18 History cyclobenzaprine 10 mg tablet 10 mg PO TID PRN 12/04/17 06/05/18 History diazepam 10 mg tablet 10 mg PO TID 12/04/17 06/05/18 History diphenoxylate-atropine 2.5 1 tab PO QIDP PRN tab 12/04/17 06/05/18 History mg-0.025 mg tablet gabapentin 300 mg capsule 300 mg PO TID 12/04/17 06/05/18 History hydrocodone 5 mg-acetaminophen 500 1 tab PO Q4HP PRN 12/04/17 06/05/18 History mg tablet lisinopril 40 mg tablet 40 mg PO DAILY 12/04/17 06/05/18 History pantoprazole 40 mg tablet,delayed 40 mg PO BID tab 12/04/17 06/05/18 History release simvastatin 20 mg tablet 20 mg PO HS 12/04/17 06/05/18 History zolpidem 10 mg tablet 10 mg PO HS PRN tab 12/04/17 06/05/18 History Insulin Glargine,Hum.rec.anlog 40 unit SQ DAILY 12/18/17 06/05/18 History [Lantus Insulin 100units/mL 10mL vial] duloxetine 60 mg capsule,delayed 60 mg PO DAILY 02/03/18 06/05/18 History release Carvedilol [Carvedilol 3.125mg Tab] 3.125 mg PO BID 02/25/18 06/05/18 History furosemide 20 mg tablet 40 mg PO DAILY tab 03/05/18 06/05/18 History Allergies Allergy/AdvReac Type Severity Reaction Status Date / Time venom-honey bee Allergy Severe S-DIFF. Verified 06/02/18 09:56 [bee venom (honey bee)] BREATHING aspartame Allergy Intermediate I-HIVES Verified 06/02/18 09:56 [From ASPARTAME (FOOD/DRUG)] adhesive tape Allergy Unknown Verified 06/02/18 09:56 From ASPARTAME (FOOD/DRUG) Allergy Intermediate I-HIVES Uncoded 03/25/18 14:42 Exam Vital signs and Labs for Last 24 Hours: Temp Pulse Resp BP Pulse Ox 99.1 F 95 H 24 126/66 94 L 06/06/18 04:00 06/06/18 04:00 06/06/18 04:00 06/06/18 04:00 06/06/18 04:00 Laboratory Results - last 24 hr 06/05/18 20:20: WBC 23.7 H*, RBC 3.06 L, Hgb 7.3 L*, Hct 24.7 L, MCV 80.5 L, MCH 24.0 L, MCHC 29.8 L, RDW 15.9, Plt Count 650 H, MPV 8.2, Neut % (Auto) 84.5 H, Lymph % (Auto) 11.3, [place] % (Auto) 3.7, Eos % (Auto) 0.3, Baso % (Auto) 0.2, Neut # (Auto) 20.0 H, Lymph # (Auto) 2.7, [place] # (Auto) 0.9, Eos # (Auto) 0.1, Baso # (Auto) 0.1, Total Counted 100, Neutrophils % (Manual) 85 H, Lymphocytes % (Manual) 12, Monocytes % (Manual) 3, Platelet Estimate Slight increase, Hypochromasia 1+ 06/05/18 20:20: Sodium 136, Potassium 2.7 L*, Chloride 98, Carbon Dioxide 28, Anion Gap 12.7, BUN 44 H, Creatinine 1.99 H, Estimated Creat Clear 31, Estimated GFR 24 L, Est GFR ( Amer) 29 L, Glucose 131 H, Calcium 8.4 L, Total Bilirubin 0.9, AST 17, ALT 10 L, Alkaline Phosphatase 122 H, Troponin I < 0.02, Total Protein 6.7, Albumin 2.0 L, Globulin 4.7 H, Albumin/Globulin Ratio 0.4 L 06/05/18 20:20: Lactic Acid 0.8 06/05/18 20:20: B-Natriuretic Peptide 75 06/05/18 20:30: Urine Color Yellow, Urine Appearance Clear, Urine pH 5.5, Ur Specific Terry 1.020, Urine Protein Trace, Urine Glucose (UA) Negative, Urine Ketones Negative, Urine Blood Negative, Urine Nitrate Negative, Urine Bilirubin Negative, Urine Urobilinogen 1.0, Ur Leukocyte Esterase Negative, Urine RBC None , Urine WBC 3-5, Ur Squamous Epith Cells Occasional, Urine Bacteria 2+, Hyaline Casts 10-20 06/05/18 22:35: Blood Type O Negative, Antibody Screen Negative, Crossmatch ([facility] ) See Detail 06/05/18 22:35: Crossmatch ([facility]) See Detail 06/06/18 00:00: Blood Type Confirm O Negative 06/06/18 06:26: POC Glucose 111 H I & O for Last 24 hours: Intake & Output 06/03/18 06/04/18 06/05/18 06/06/18 11:59 11:59 11:59 11:59 Intake Total 500 / 500 Output Total 900 / 900 Balance -400 / -400 Weight 196 lb 3 oz Narrative: Patient is awake this morning she is oriented to person and place. Thought processes are slow and incomplete. Oropharynx is moist. Neck is without lymphadenopathy. Lungs are clear to auscultation. Heart has a regular rate and rhythm. Abdomen is soft. Movement of the right upper extremity causes moderate amount of pain. H&P: Result - Labs Labs: Short CBC 06/05/18 Range/Units 20:20 WBC 23.7 H* (4.8-10.8) K/mm3 Hgb 7.3 L* (12.2-16.2) g/dL Hct 24.7 L (37.0-47.0) % Plt Count 650 H (142-424) K/mm3 BMP 06/05/18 20:20 Sodium 136 Potassium 2.7 L* Chloride 98 Carbon Dioxide 28 BUN 44 H Creatinine 1.99 H Glucose 131 H Calcium 8.4 L Cardiac Enzymes 06/05/18 Range/Units 20:20 Troponin I < 0.02 (0.00-0.06) ng/ml Liver Function 06/05/18 Range/Units 20:20 Total Bilirubin 0.9 (0.2-1.0) mg/dL AST 17 (15-37) U/L ALT 10 L (12-78) U/L Alkaline Phosphatase 122 H (46-116) U/L Albumin 2.0 L (3.4-5.0) gm/dL Urine 06/05/18 Range/Units 20:30 Urine Color Yellow (Yellow) Urine Appearance Clear (Clear) Urine pH 5.5 (5.0-8.5) Ur Specific Terry 1.020 (1.005-1.030) Urine Protein Trace (Negative) Urine Glucose (UA) Negative (Negative) Assessment and Plan (1) Sepsis Current visit: Yes Status: Suspected Category: Medical Code(s): A41.9 - Sepsis, unspecified organism (2) Anemia Current visit: Yes Status: Acute Qualifiers: Anemia type: other cause Other causes of anemia: other cause, not classified Qualified Code(s): D64.89 - Other specified anemias Category: Medical Code(s): D64.9 - Anemia, unspecified (3) Hypokalemia Current visit: Yes Status: Acute Category: Medical Code(s): E87.6 - Hypokalemia (4) Leukocytosis Current visit: Yes Status: Acute Qualifiers: Leukocytosis type: unspecified Qualified Code(s): D72.829 - Elevated white blood cell count, unspecified Category: Medical Code(s): D72.829 - Elevated white blood cell count, unspecified (5) Non-Hodgkin lymphoma Current visit: Yes Status: Acute Qualifiers: Non-Hodgkin lymphoma type: unspecified type Lymphoma site: unspecified region Qualified Code(s): C85.90 - Non-Hodgkin lymphoma, unspecified, unspecified site Category: Medical Code(s): C85.90 - Non-Hodgkin lymphoma, unspecified, unspecified site - Assessment and plan all Dx Assessment and Plan for all problems:: Patient has been admitted and placed on broad-spectrum antibiotics. Due to underlying edema fluid boluses were withheld. Patient's primary complaint is pain and I will order intravenous morphine 4 mg every 4 hours and reassess every 24 hours the patient's level of pain control. Unfortunately in the past with narcotics patient has been a significant fall risk.
[2018-06-06 07:22] LABS: Potassium 2.9 mmoL/L (3.5-5.1)
--- NOTE | 2018-06-06 07:22 | Pharmacy Consult Notes ---
[facility] Pharmacy VTE Monitoring - Patient Demographics Admission date: 06/06/18 Report Date: 06/06/18 Time: 07:22 Allergies/Adverse Reactions: Patient Allergies venom-honey bee [bee venom (honey bee)] Allergy (Severe, Verified 06/02/18 09:56 ) S-DIFF. BREATHING aspartame [From ASPARTAME (FOOD/DRUG)] Allergy (Intermediate, Verified 06/02/18 09:56) I-HIVES adhesive tape Allergy (Unknown, Verified 06/06/18 07:12) Unknown allergy reaction Height: 1.63 m Weight: 88.989 kg Patient Problems: Current Active Problems Anemia (Acute) Leukocytosis (Acute) Hypokalemia (Acute) Non-Hodgkin lymphoma (Acute) - VTE Risk Labs: VTE Related Lab Results Hgb 7.3 g/dL (12.2-16.2) L* 06/05/18 20:20 Hct 24.7 % (37.0-47.0) L 06/05/18 20:20 Plt Count 650 K/mm3 (142-424) H 06/05/18 20:20 BUN 44 mg/dL (7-18) H 06/05/18 20:20 Creatinine 1.99 mg/dL (0.55-1.02) H 06/05/18 20:20 Estimated Creat Clear 31 mL/min (0-300) 06/05/18 20:20 Was VTE Risk Assessment Performed: Yes VTE Score: 3 VTE Risk Level: Low Risk Clinical Trial Participant: No - Prophylaxis VTE Prophylaxis Ordered?: Yes Types of VTE Prophylaxis: TEDS Knee High
[2018-06-06 07:23] LABS: Hematocrit 22.9 % (37.0-47.0); Hemoglobin 6.6 g/dL (12.2-16.2)
[2018-06-06 10:27] LABS: Lymphocytes % 4 % (10-50); Monocytes % 2 % (2-9); Neutrophils % 92 % (42-76); Total Cells Counted 100
[2018-06-06 10:29] LABS: Hypochromasia 2+
[2018-06-07 06:01] LABS: Basophils % 0.1 % (0.1-2.0); Eosinophils % 0.1 % (0.1-12.0); Lymphocytes # 1.6 K/mm3 (0.7-4.5); Lymphocytes % 8.7 K/mm3 (10-50); Mean Corpuscular HGB Conc 31.9 g/dL (31.8-35.4); Mean Corpuscular Hemoglobin 26.3 pg (27.0-31.2); Mean Corpuscular Volume 82.7 fl (81-99); Mean Platelet Volume 8.6 fl (7.4-10.4); Monocytes # 0.6 K/mm3 (0.1-1.0); Monocytes % 3.4 % (1.7-9.3); Neutrophils # 16.2 K/mm3 (1.8-7.8); Neutrophils % 87.7 % (37.0-80.0); Platelet Count 549 K/mm3 (142-424); Red Blood Count 2.45 M/mm3 (4.20-5.40); White Blood Count 18.5 K/mm3 (4.8-10.8)
[2018-06-07 06:04] LABS: Hemoglobin 6.4 g/dL (12.2-16.2)
[2018-06-07 06:05] LABS: Hematocrit 20.2 % (37.0-47.0)
[2018-06-07 06:19] LABS: Albumin Level 1.6 gm/dL (3.4-5.0); Albumin/Globulin Ratio 0.3 (1.1-1.8); Anion Gap 9.5 mEq/L (5-15); Calcium 8.9 mg/dL (8.5-10.1); Globulin 4.6 gm/dl (1.3-3.2); Potassium 3.5 mmoL/L (3.5-5.1); Total Protein,Serum 6.2 gm/dL (6.4-8.2)
--- NOTE | 2018-06-07 07:18 | Progress Note ---
Internal Medicine - PN: Subj *Date: 06/07/18 *Time: 07:16 Interval history: Patient has no new complaints this morning. She believes her pain is a little bit better. Nursing staff reports fever of 101.9 overnight. Patient is anemic and H&H decreased slightly yesterday. It patient's personal wish to not have a blood transfusion and this has been confirmed and supported by her . There is a child who disagrees with this and has been encouraging the patient to proceed with transfusion but at this point she refuses. Exam Vital signs and Labs for Last 24 Hours: Temp Pulse Resp BP Pulse Ox 99.3 F 91 H 20 109/47 92 L 06/07/18 03:56 06/07/18 03:56 06/07/18 03:56 06/07/18 03:56 06/07/18 03:56 Laboratory Results - last 24 hr 06/06/18 06:39: WBC 17.8 H, RBC 2.83 L, Hgb 6.6 L*, Hct 22.9 L*, MCV 80.8 L, MCH 23.4 L, MCHC 29.0 L, RDW 15.8, Plt Count 589 H, MPV 8.5, Neut % (Auto) 87.0 H, Lymph % (Auto) 9.7 L, [place] % (Auto) 2.9, Eos % (Auto) 0.2, Baso % (Auto) 0.1 , Neut # (Auto) 15.5 H, Lymph # (Auto) 1.7, [place] # (Auto) 0.5, Eos # (Auto) 0.0 , Baso # (Auto) 0.0, Total Counted 100, Neutrophils % (Manual) 92 H, Lymphocytes % (Manual) 4 L, Atypical Lymphs % 2.0, Monocytes % (Manual) 2, Platelet Estimate Moderate increase, Hypochromasia 2+ 06/06/18 06:39: Sodium 138, Potassium 2.9 L*, Chloride 100, Carbon Dioxide 30, Anion Gap 10.9, BUN 43 H, Creatinine 1.67 H, Estimated Creat Clear 40, Estimated GFR 30 L, Est GFR ( Amer) 36 L D, Glucose 104 D, Calcium 8.6, Total Bilirubin 1.1 H, AST 33 D, ALT 13 D, Alkaline Phosphatase 159 H, Total Protein 6.5, Albumin 1.8 L, Globulin 4.7 H, Albumin/Globulin Ratio 0.4 L 06/06/18 09:59: POC Glucose 119 H 06/06/18 11:44: POC Glucose 133 H 06/06/18 17:09: POC Glucose 120 H 06/06/18 21:25: POC Glucose 106 06/07/18 05:50: WBC 18.5 H, RBC 2.45 L, Hgb 6.4 L*, Hct 20.2 L*, MCV 82.7, MCH 26.3 L, MCHC 31.9, RDW 16.0, Plt Count 549 H, MPV 8.6, Neut % (Auto) 87.7 H, Lymph % (Auto) 8.7 L, [place] % (Auto) 3.4, Eos % (Auto) 0.1, Baso % (Auto) 0.1, Neut # (Auto) 16.2 H, Lymph # (Auto) 1.6, [place] # (Auto) 0.6, Eos # (Auto) 0.0, Baso # (Auto) 0.0 06/07/18 05:50: Sodium 141, Potassium 3.5 D, Chloride 103, Carbon Dioxide 32, Anion Gap 9.5, BUN 36 H, Creatinine 1.42 H, Estimated Creat Clear 47, Estimated GFR 36 L, Est GFR ( Amer) 43 L, Glucose 151 H D, Calcium 8.9, Total Bilirubin 2.0 H, AST 69 H D, ALT 19 D, Alkaline Phosphatase 201 H, Total Protein 6.2 L, Albumin 1.6 L D, Globulin 4.6 H, Albumin/Globulin Ratio 0.3 L 06/07/18 05:51: POC Glucose 165 H I & O for Last 24 hours: Intake & Output 06/04/18 06/05/18 06/06/18 06/07/18 11:59 11:59 11:59 11:59 Intake Total 600 / 600 1321 / 1321 Output Total 900 / 900 1500 / 1500 Balance -300 / -300 -179 / -179 Weight 196 lb 3 oz 190 lb Microbiology Reports for the Last 24 Hours: Microbiology 06/05/18 20:30 Urine,Catheterized Urine Culture - Preliminary NO GROWTH AFTER 24 HOURS Narrative: She is in no distress this morning. Lungs are clear although respiratory effort is somewhat poor. Heart has a regular rate and rhythm. Abdomen is soft and nontender with bowel sounds. Extremities have 1+ edema although this is improved compared to her office visit 1 week ago. Assessment and Plan (1) Sepsis Current visit: Yes Status: Suspected Category: Medical Code(s): A41.9 - Sepsis, unspecified organism (2) Anemia Current visit: Yes Status: Acute Qualifiers: Anemia type: other cause Other causes of anemia: other cause, not classified Qualified Code(s): D64.89 - Other specified anemias Category: Medical Code(s): D64.9 - Anemia, unspecified (3) Hypokalemia Current visit: Yes Status: Acute Category: Medical Code(s): E87.6 - Hypokalemia (4) Leukocytosis Current visit: Yes Status: Acute Qualifiers: Leukocytosis type: unspecified Qualified Code(s): D72.829 - Elevated white blood cell count, unspecified Category: Medical Code(s): D72.829 - Elevated white blood cell count, unspecified (5) Non-Hodgkin lymphoma Current visit: Yes Status: Acute Qualifiers: Non-Hodgkin lymphoma type: unspecified type Lymphoma site: unspecified region Qualified Code(s): C85.90 - Non-Hodgkin lymphoma, unspecified, unspecified site Category: Medical Code(s): C85.90 - Non-Hodgkin lymphoma, unspecified, unspecified site - Assessment and plan all Dx Assessment and Plan for all problems:: 1. Continue antibiotics 2. Monitor H&H 3. Potassium is improved 4. I did inform the patient that because of her anemia she will feel quite weak. I also brought up the possibility that she may not be strong enough to return home and I am not sure that her can provide the level of care she needs. Patient at this point refuses the idea of going to a detention. I have explained to the patient that we will assess her daily and that will include few PT and OT eval's. Goal today is to get out of bed
[2018-06-07 07:31] LABS: Lymphocytes % 7 % (10-50); Monocytes % 4 % (2-9); Neutrophils % 89 % (42-76); Total Cells Counted 100
[2018-06-07 07:32] LABS: Hypochromasia 1+
[2018-06-07 18:00] LABS: Hematocrit 30.7 % (37.0-47.0)
[2018-06-07 18:01] LABS: Hemoglobin 9.1 g/dL (12.2-16.2)
[2018-06-08 05:53] LABS: Basophils % 0.1 % (0.1-2.0); Eosinophils % 0.1 % (0.1-12.0); Hematocrit 30.7 % (37.0-47.0); Lymphocytes # 1.5 K/mm3 (0.7-4.5); Lymphocytes % 6.6 K/mm3 (10-50); Mean Corpuscular HGB Conc 29.3 g/dL (31.8-35.4); Mean Corpuscular Hemoglobin 24.6 pg (27.0-31.2); Mean Platelet Volume 8.3 fl (7.4-10.4); Monocytes # 0.7 K/mm3 (0.1-1.0); Monocytes % 2.9 % (1.7-9.3); Neutrophils # 21.3 K/mm3 (1.8-7.8); Neutrophils % 90.3 % (37.0-80.0); Red Blood Count 3.65 M/mm3 (4.20-5.40); Red Cell Distribution Width 15.9 % (11.5-17.5)
[2018-06-08 05:55] LABS: Platelet Count 656 K/mm3 (142-424); White Blood Count 23.6 K/mm3 (4.8-10.8)
[2018-06-08 06:08] LABS: Hypochromasia 3+; Lymphocytes % 3 % (10-50); Neutrophils % 82 % (42-76); Rouleaux 2+; Total Cells Counted 100
[2018-06-08 06:09] LABS: Polychromasia 1+
--- NOTE | 2018-06-08 06:55 | Progress Note ---
Internal Medicine - PN: Subj *Date: 06/08/18 *Time: 06:51 Interval history: Patient changed her mind about blood transfusion and yesterday received 2 units of packed red blood cells which has improved her hemoglobin. She states this morning her pain is still 10 out of 10 but she would like to attempt to get out of bed after breakfast this morning. Exam Vital signs and Labs for Last 24 Hours: Temp Pulse Resp BP Pulse Ox 98.5 F 82 24 112/59 90 L 06/08/18 04:00 06/08/18 04:00 06/08/18 04:00 06/08/18 04:00 06/08/18 04:00 Laboratory Results - last 24 hr 06/05/18 22:35: Blood Type O Negative, Antibody Screen Negative, Crossmatch ([facility] ) See Detail 06/05/18 22:35: Crossmatch ([facility]) See Detail 06/07/18 05:50: Total Counted 100, Neutrophils % (Manual) 89 H, Lymphocytes % ( Manual) 7 L, Monocytes % (Manual) 4, Platelet Estimate Slight increase, Hypochromasia 1+ 06/07/18 11:15: POC Glucose 254 H 06/07/18 16:57: POC Glucose 228 H 06/07/18 17:40: Hgb 9.1 L D, Hct 30.7 L 06/07/18 20:30: POC Glucose 226 H 06/08/18 05:42: WBC 23.6 H* D, RBC 3.65 L D, Hgb 9.0 L, Hct 30.7 L, MCV 84.0, MCH 24.6 L, MCHC 29.3 L, RDW 15.9, Plt Count 656 H, MPV 8.3, Neut % (Auto) 90.3 H, Lymph % (Auto) 6.6 L, [place] % (Auto) 2.9, Eos % (Auto) 0.1, Baso % (Auto) 0.1 , Neut # (Auto) 21.3 H, Lymph # (Auto) 1.5, [place] # (Auto) 0.7, Eos # (Auto) 0.0 , Baso # (Auto) 0.0, Total Counted 100, Neutrophils % (Manual) 82 H, Band Neutrophils % 15.0 H, Lymphocytes % (Manual) 3 L, Platelet Estimate Moderate increase, Polychromasia 1+, Hypochromasia 3+, Microcytosis 1+, Rouleaux 2+ 06/08/18 05:42: POC Glucose 184 H I & O for Last 24 hours: Intake & Output 06/05/18 06/06/18 06/07/18 06/08/18 11:59 11:59 11:59 11:59 Intake Total 600 / 600 1681 / 1681 2246 / 2246 Output Total 900 / 900 1500 / 1500 700 / 700 Balance -300 / -300 181 / 181 1546 / 1546 Weight 196 lb 3 oz 190 lb 200 lb 2 oz Microbiology Reports for the Last 24 Hours: Microbiology 06/05/18 20:06 Blood Blood Culture - Preliminary NO GROWTH AFTER 48 HOURS 06/05/18 20:20 Blood Blood Culture - Preliminary NO GROWTH AFTER 48 HOURS 06/05/18 20:30 Urine,Catheterized Urine Culture - Final NO GROWTH AFTER 48 HOURS Narrative: She looks weak. Thought processes are slow. Lungs are clear. Heart has a regular rate and rhythm. Abdomen is soft. Assessment and Plan (1) Sepsis Current visit: Yes Status: Suspected Category: Medical Code(s): A41.9 - Sepsis, unspecified organism (2) Anemia Current visit: Yes Status: Acute Qualifiers: Anemia type: other cause Other causes of anemia: other cause, not classified Qualified Code(s): D64.89 - Other specified anemias Category: Medical Code(s): D64.9 - Anemia, unspecified (3) Hypokalemia Current visit: Yes Status: Acute Category: Medical Code(s): E87.6 - Hypokalemia (4) Leukocytosis Current visit: Yes Status: Acute Qualifiers: Leukocytosis type: unspecified Qualified Code(s): D72.829 - Elevated white blood cell count, unspecified Category: Medical Code(s): D72.829 - Elevated white blood cell count, unspecified (5) Non-Hodgkin lymphoma Current visit: Yes Status: Acute Qualifiers: Non-Hodgkin lymphoma type: unspecified type Lymphoma site: unspecified region Qualified Code(s): C85.90 - Non-Hodgkin lymphoma, unspecified, unspecified site Category: Medical Code(s): C85.90 - Non-Hodgkin lymphoma, unspecified, unspecified site - Assessment and plan all Dx Assessment and Plan for all problems:: White blood cell count has increased but infectious workup has been negative for a bacterial infection. Blood, urine cultures are negative. Chest x-ray and CT scan did not reveal any pneumonia. I am going to add vancomycin to her regimen and we will repeat labs in the a.m. I think there is high likelihood that her malignancy is the source of her leukocytosis. Dr. Barahona will also be consulted for tomorrow.
--- NOTE | 2018-06-08 14:26 | Pharmacy Consult Notes ---
- Pharmacy Consult Date: 06/08/18 Time: 14:25 Referring provider: DR. PANDEY Reason for Consult:: VANCOMYCIN DOSIN Allergies and ADEs:: Allergies Allergy/AdvReac Type Severity Reaction Status Date / Time venom-honey bee Allergy Severe S-DIFF. Verified 06/02/18 09:56 [bee venom (honey bee)] BREATHING aspartame Allergy Intermediate I-HIVES Verified 06/02/18 09:56 [From ASPARTAME (FOOD/DRUG)] adhesive tape Allergy Unknown Unknown Verified 06/06/18 07:12 allergy reaction Home Medications:: Home Medications Medication Instructions Recorded Confirmed Type aspirin 81 mg tablet,delayed 81 mg PO DAILY 12/04/17 06/05/18 History release clopidogrel 75 mg tablet 75 mg PO DAILY 12/04/17 06/05/18 History diphenoxylate-atropine 2.5 1 tab PO QIDP PRN tab 12/04/17 06/05/18 History mg-0.025 mg tablet hydrocodone 5 mg-acetaminophen 500 1 tab PO TIDP PRN 12/04/17 06/06/18 History mg tablet pantoprazole 40 mg tablet,delayed 40 mg PO HS tab 12/04/17 06/06/18 History release simvastatin 20 mg tablet 20 mg PO HS 12/04/17 06/05/18 History zolpidem 10 mg tablet 10 mg PO HS PRN tab 12/04/17 06/05/18 History Insulin Glargine,Hum.rec.anlog 60 unit SQ HS 12/18/17 06/06/18 History [Lantus Insulin 100units/mL 10mL vial] Carvedilol [Carvedilol 3.125mg Tab] 3.125 mg PO BID 02/25/18 06/05/18 History Citalopram Hydrobromide [Celexa 10 mg PO DAILY 06/06/18 06/06/18 History 10mg Tablet] Cyclobenzaprine HCl 5 mg PO DAILYP PRN 06/06/18 06/06/18 History [Cyclobenzaprine 5mg Tab] Furosemide [Furosemide 80mg Tab] 80 mg PO BID 06/06/18 06/06/18 History Gabapentin [Gabapentin 800mg Tab] 800 mg PO TID 06/06/18 06/06/18 History Lisinopril [Lisinopril 10mg Tab] 10 mg PO DAILY 06/06/18 06/06/18 History diazePAM [diazePAM 5mg Tablet] 5 mg PO BIDP PRN 06/06/18 06/06/18 History Height: 1.63 m Weight: 90.775 kg Laboratory Results:: Laboratory Results - last 24 hr 06/05/18 22:35: Blood Type O Negative, Antibody Screen Negative, Crossmatch ([facility] ) See Detail 06/05/18 22:35: Crossmatch ([facility]) See Detail 06/07/18 16:57: POC Glucose 228 H 06/07/18 17:40: Hgb 9.1 L D, Hct 30.7 L 06/07/18 20:30: POC Glucose 226 H 06/08/18 05:42: WBC 23.6 H* D, RBC 3.65 L D, Hgb 9.0 L, Hct 30.7 L, MCV 84.0, MCH 24.6 L, MCHC 29.3 L, RDW 15.9, Plt Count 656 H, MPV 8.3, Neut % (Auto) 90.3 H, Lymph % (Auto) 6.6 L, [place] % (Auto) 2.9, Eos % (Auto) 0.1, Baso % (Auto) 0.1 , Neut # (Auto) 21.3 H, Lymph # (Auto) 1.5, [place] # (Auto) 0.7, Eos # (Auto) 0.0 , Baso # (Auto) 0.0, Total Counted 100, Neutrophils % (Manual) 82 H, Band Neutrophils % 15.0 H, Lymphocytes % (Manual) 3 L, Platelet Estimate Moderate increase, Polychromasia 1+, Hypochromasia 3+, Microcytosis 1+, Rouleaux 2+ 06/08/18 05:42: POC Glucose 184 H Medical History: Reports:: Arrhythmia, Atrial Fibrillation, Cerebrovascular Accident, Hyperlipidemia, Hypertension, Migraine, Transient Ischemic Attacks ( TIA) Denies:: Cancer, Diabetes Mellitus Type 1, Diabetes Mellitus Type 2, MRSA, Seizures Assessment and Plan (1) Sepsis Current visit: Yes Status: Suspected Category: Medical Code(s): A41.9 - Sepsis, unspecified organism (2) Anemia Current visit: Yes Status: Acute Qualifiers: Anemia type: other cause Other causes of anemia: other cause, not classified Qualified Code(s): D64.89 - Other specified anemias Category: Medical Code(s): D64.9 - Anemia, unspecified (3) Hypokalemia Current visit: Yes Status: Acute Category: Medical Code(s): E87.6 - Hypokalemia (4) Leukocytosis Current visit: Yes Status: Acute Qualifiers: Leukocytosis type: unspecified Qualified Code(s): D72.829 - Elevated white blood cell count, unspecified Category: Medical Code(s): D72.829 - Elevated white blood cell count, unspecified (5) Non-Hodgkin lymphoma Current visit: Yes Status: Acute Qualifiers: Non-Hodgkin lymphoma type: unspecified type Lymphoma site: unspecified region Qualified Code(s): C85.90 - Non-Hodgkin lymphoma, unspecified, unspecified site Category: Medical Code(s): C85.90 - Non-Hodgkin lymphoma, unspecified, unspecified site - Assessment and plan all Dx Assessment and Plan for all problems:: RECOMMEND STARTING WITH VANCOMYCIN 1750 MG Q36H AT THIS TIME. PHARMACY WILL FOLLOW DAILY AND ADJUST APPROPRIATE. CEDRIC BARDALES, QINGD
[2018-06-09 05:20] LABS: Basophils % 0.1 % (0.1-2.0); Eosinophils % 0.1 % (0.1-12.0); Hemoglobin 8.8 g/dL (12.2-16.2); Lymphocytes # 1.4 K/mm3 (0.7-4.5); Lymphocytes % 5.7 K/mm3 (10-50); Mean Corpuscular HGB Conc 30.3 g/dL (31.8-35.4); Mean Corpuscular Hemoglobin 25.5 pg (27.0-31.2); Mean Corpuscular Volume 84.1 fl (81-99); Mean Platelet Volume 8.2 fl (7.4-10.4); Monocytes # 0.7 K/mm3 (0.1-1.0); Monocytes % 2.9 % (1.7-9.3); Neutrophils # 21.6 K/mm3 (1.8-7.8); Neutrophils % 91.2 % (37.0-80.0); Platelet Count 585 K/mm3 (142-424); Red Blood Count 3.43 M/mm3 (4.20-5.40)
[2018-06-09 05:23] LABS: Hematocrit 28.9 % (37.0-47.0); White Blood Count 23.6 K/mm3 (4.8-10.8)
[2018-06-09 05:27] LABS: Anion Gap 11.3 mEq/L (5-15); Calcium 8.3 mg/dL (8.5-10.1); Potassium 4.3 mmoL/L (3.5-5.1)
[2018-06-09 05:37] LABS: Lymphocytes % 6 % (10-50); Neutrophils % 86 % (42-76); Total Cells Counted 100
[2018-06-09 05:38] LABS: Anisocytosis 1+; Hypochromasia 3+; Polychromasia 2+
--- NOTE | 2018-06-09 07:22 | Progress Note ---
Internal Medicine - PN: Subj *Date: 06/09/18 *Time: 07:19 Interval history: Patient has no complaints this morning and states her day and night over the last 24 hours have gone well. In the last 24 hours she has had oral narcotic and intravenous narcotic a total of 5 times. She has remained afebrile. Exam Vital signs and Labs for Last 24 Hours: Temp Pulse Resp BP Pulse Ox 98.8 F 98 H 24 123/57 91 L 06/09/18 04:00 06/09/18 04:00 06/09/18 04:00 06/09/18 04:00 06/09/18 04:00 Laboratory Results - last 24 hr 06/09/18 05:00: WBC 23.6 H*, RBC 3.43 L, Hgb 8.8 L, Hct 28.9 L, MCV 84.1, MCH 25.5 L, MCHC 30.3 L, RDW 16.0, Plt Count 585 H, MPV 8.2, Neut % (Auto) 91.2 H, Lymph % (Auto) 5.7 L, [place] % (Auto) 2.9, Eos % (Auto) 0.1, Baso % (Auto) 0.1, Neut # (Auto) 21.6 H, Lymph # (Auto) 1.4, [place] # (Auto) 0.7, Eos # (Auto) 0.0, Baso # (Auto) 0.0, Total Counted 100, Neutrophils % (Manual) 86 H, Band Neutrophils % 8.0, Lymphocytes % (Manual) 6 L, Platelet Estimate Moderate increase, Polychromasia 2+, Hypochromasia 3+, Anisocytosis 1+, Microcytosis 1+ 06/09/18 05:00: Sodium 143, Potassium 4.3 D, Chloride 106, Carbon Dioxide 30, Anion Gap 11.3, BUN 26 H D, Creatinine 0.91 D, Estimated Creat Clear 70, Estimated GFR 60, Est GFR ( Amer) 73 D, Glucose 201 H, Calcium 8.3 L I & O for Last 24 hours: Intake & Output 06/06/18 06/07/18 06/08/18 06/09/18 11:59 11:59 11:59 11:59 Intake Total 600 / 600 1681 / 1681 2606 / 2606 1603 / 1603 Output Total 900 / 900 1500 / 1500 700 / 700 1350 / 1350 Balance -300 / -300 181 / 181 1906 / 1906 253 / 253 Weight 196 lb 3 oz 190 lb 200 lb 2 oz 206 lb 6 oz Narrative: She is in no distress. She still appears quite weak. Heart rate is regular. Lungs are clear. Assessment and Plan (1) Non-Hodgkin lymphoma Current visit: Yes Status: Acute Qualifiers: Non-Hodgkin lymphoma type: unspecified type Lymphoma site: unspecified region Qualified Code(s): C85.90 - Non-Hodgkin lymphoma, unspecified, unspecified site Category: Medical Code(s): C85.90 - Non-Hodgkin lymphoma, unspecified, unspecified site (2) Sepsis Current visit: Yes Status: Ruled-out Category: Medical Code(s): A41.9 - Sepsis, unspecified organism (3) Anemia Current visit: Yes Status: Acute Qualifiers: Anemia type: other cause Other causes of anemia: other cause, not classified Qualified Code(s): D64.89 - Other specified anemias Category: Medical Code(s): D64.9 - Anemia, unspecified (4) Hypokalemia Current visit: Yes Status: Acute Category: Medical Code(s): E87.6 - Hypokalemia (5) Leukocytosis Current visit: Yes Status: Acute Qualifiers: Leukocytosis type: unspecified Qualified Code(s): D72.829 - Elevated white blood cell count, unspecified Category: Medical Code(s): D72.829 - Elevated white blood cell count, unspecified - Assessment and plan all Dx Assessment and Plan for all problems:: Patient's white blood cell count initially seemed to respond to antibiotics but is now risen and stabilized at 23,000. Blood and urine cultures are negative and patient is on triple antibiotic therapy without any change in her white blood cell count. I suspect her elevated white blood cell count is secondary to her malignancy. Oncology service has been consulted. I am going to increase the patient's oral narcotic to see if we can achieve better pain control without the need for intravenous narcotics. Patient is going to be quite weak and while I have already spoken with the family about her candidacy for a residential facility both the patient and her do not want this and wished to return home. PT assessment today. Repeat labs in a.m. Patient may possibly be discharged tomorrow.
[2018-06-10 06:07] LABS: Basophils % 0.1 % (0.1-2.0); Eosinophils % 0.2 % (0.1-12.0); Hemoglobin 8.7 g/dL (12.2-16.2); Lymphocytes # 1.6 K/mm3 (0.7-4.5); Lymphocytes % 6.7 K/mm3 (10-50); Mean Corpuscular HGB Conc 28.9 g/dL (31.8-35.4); Mean Corpuscular Hemoglobin 24.5 pg (27.0-31.2); Mean Corpuscular Volume 84.8 fl (81-99); Mean Platelet Volume 8.3 fl (7.4-10.4); Monocytes # 0.7 K/mm3 (0.1-1.0); Monocytes % 2.8 % (1.7-9.3); Neutrophils # 21.5 K/mm3 (1.8-7.8); Neutrophils % 90.3 % (37.0-80.0); Platelet Count 683 K/mm3 (142-424); Red Blood Count 3.54 M/mm3 (4.20-5.40); Red Cell Distribution Width 16.3 % (11.5-17.5); White Blood Count 23.8 K/mm3 (4.8-10.8)
[2018-06-10 06:10] LABS: Anion Gap 11.2 mEq/L (5-15); Potassium 4.2 mmoL/L (3.5-5.1)
[2018-06-10 06:16] LABS: Calcium 9.1 mg/dL (8.5-10.1)
--- NOTE | 2018-06-10 07:08 | Discharge Summary ---
General - General Admission date:: 06/05/18 Discharge date: 06/10/18 HPI HPI: 78-year-old female with known lymphoma that presented to the emergency department for the second time this week with complaints of pain and inability to ambulate. Patient had been seen earlier in the week and was found to be anemic. When she returned to the emergency department last night she was slightly more anemic than before and white blood cell count had significantly elevated. Workup in the emergency department was negative for significant pneumonia or abnormal urine. Concern over sepsis was raised. Patient has been admitted for IV antibiotics while we await blood cultures. Her primary complaint this morning his pain as it has been for the last several weeks. It is believed that pain is coming from her malignancy or the chemotherapy used to treat her lymphoma. Patient takes hydrocodone on a daily basis and this only improves pain for maybe 2 hours at the most. But herself this morning can give limited history. Blood transfusion was refused and this is the patient's personal choice. Hospital Course Hospital Course: Patient was admitted and placed on broad-spectrum antibiotic coverage for potential sepsis. After 48 hours blood and urine cultures were negative for bacterial infection. Patient's white blood cell count seems to initially respond to antibiotic coverage but quickly ray back to 23,000 and stayed at this level. I do not believe infection is the source of the patient's leukocytosis and is likely related to her underlying malignancy. Patient was anemic on admission and was admitted for blood transfusion as well however she refused blood transfusion. 48 hours after admission patient changed her mind about blood transfusion and received 2 units of packed red blood cells. Her Plavix was held while she was hospitalized. Patient was quite weak and complained of a lot of pain while hospitalized. She was given morphine every 4 hours along with hydrocodone. Adjustments were made in her dosages based on 24-hour usages. Patient still had significant pain at discharge. Physical therapy was consulted due to the patient's weakness and she was a candidate for assisted care at a facility. However patient refused this and was adamant about returning home. Because of the patient's level of weakness and pain along with her cancer diagnosis decision was made to consult hospice. Hospice met with patient and family prior to discharge from the hospital. Objective Vital signs: Temp Pulse Resp BP Pulse Ox 97.9 F 95 H 16 151/63 92 L 06/10/18 03:45 06/10/18 03:45 06/10/18 03:45 06/10/18 03:45 06/10/18 03:45 Results Labs on day of discharge: Labs from last 24 hours 06/10/18 06/10/18 06/10/18 06:33 05:37 05:37 WBC 23.8 H* RBC 3.54 L Hgb 8.7 L Hct 30.0 L MCV 84.8 MCH 24.5 L MCHC 28.9 L RDW 16.3 Plt Count 683 H MPV 8.3 Neut % (Auto) 90.3 H Lymph % (Auto) 6.7 L [place] % (Auto) 2.8 Eos % (Auto) 0.2 Baso % (Auto) 0.1 Neut # (Auto) 21.5 H Lymph # (Auto) 1.6 [place] # (Auto) 0.7 Eos # (Auto) 0.0 Baso # (Auto) 0.0 Sodium 142 Potassium 4.2 Chloride 108 H Carbon Dioxide 27 Anion Gap 11.2 BUN 23 H Creatinine 0.98 Estimated Creat Clear 70 Estimated GFR 55 L Est GFR ( Amer) 67 Glucose 197 H POC Glucose 184 H Calcium 9.1 06/09/18 06/09/18 06/09/18 20:19 16:17 11:17 WBC RBC Hgb Hct MCV MCH MCHC RDW Plt Count MPV Neut % (Auto) Lymph % (Auto) [place] % (Auto) Eos % (Auto) Baso % (Auto) Neut # (Auto) Lymph # (Auto) [place] # (Auto) Eos # (Auto) Baso # (Auto) Sodium Potassium Chloride Carbon Dioxide Anion Gap BUN Creatinine Estimated Creat Clear Estimated GFR Est GFR ( Amer) Glucose POC Glucose 219 H 247 H 248 H Calcium Preliminary micro results at discharge 06/05/18 20:06 Blood Culture - Preliminary Blood NO GROWTH AFTER 48 HOURS 06/05/18 20:20 Blood Culture - Preliminary Blood NO GROWTH AFTER 48 HOURS DS: Diagnosis - Discharge Diagnosis (1) Non-Hodgkin lymphoma Status: Acute (2) Sepsis Status: Ruled-out (3) Anemia Status: Acute (4) Hypokalemia Status: Acute (5) Leukocytosis Status: Acute Discharge Plan - Patient Discharge Instructions ACTIVITY: Continue current activity DIET: continue same diet - Follow up Plan Follow up with: Jayjay Naylor MD [Primary Care Provider] - 1 week Disposition: Home, Self-[facility] Medications: Home Medications Medication Instructions Recorded Confirmed Type aspirin 81 mg tablet,delayed 81 mg PO DAILY 12/04/17 06/05/18 History release clopidogrel 75 mg tablet 75 mg PO DAILY 12/04/17 06/05/18 History diphenoxylate-atropine 2.5 1 tab PO QIDP PRN tab 12/04/17 06/05/18 History mg-0.025 mg tablet hydrocodone 5 mg-acetaminophen 500 1 tab PO TIDP PRN 12/04/17 06/06/18 History mg tablet pantoprazole 40 mg tablet,delayed 40 mg PO HS tab 12/04/17 06/06/18 History release simvastatin 20 mg tablet 20 mg PO HS 12/04/17 06/05/18 History zolpidem 10 mg tablet 10 mg PO HS PRN tab 12/04/17 06/05/18 History Insulin Glargine,Hum.[email or web address].anlog 60 unit SQ HS 12/18/17 06/06/18 History [Lantus Insulin 100units/mL 10mL vial] Carvedilol [Carvedilol 3.125mg Tab] 3.125 mg PO BID 02/25/18 06/05/18 History Citalopram Hydrobromide [Celexa 10 mg PO DAILY 06/06/18 06/06/18 History 10mg Tablet] Cyclobenzaprine HCl 5 mg PO DAILYP PRN 06/06/18 06/06/18 History [Cyclobenzaprine 5mg Tab] Furosemide [Furosemide 80mg Tab] 80 mg PO BID 06/06/18 06/06/18 History Gabapentin [Gabapentin 800mg Tab] 800 mg PO TID 06/06/18 06/06/18 History Lisinopril [Lisinopril 10mg Tab] 10 mg PO DAILY 06/06/18 06/06/18 History diazePAM [diazePAM 5mg Tablet] 5 mg PO BIDP PRN 06/06/18 06/06/18 History Prescriptions/Medication Reconciliation: New RX: Hydrocodone/Acetaminophen [Lortab 10/325mg tablet] 1 tab PO Q4HP PRN #120 tab PRN Reason: Moderate To Severe Pain Continue hydrocodone 5 mg-acetaminophen 500 mg tablet 1 tab PO TIDP PRN PRN Reason: pain pantoprazole 40 mg tablet,delayed release 40 mg PO HS tab diphenoxylate-atropine 2.5 mg-0.025 mg tablet 1 tab PO QIDP PRN tab PRN Reason: diarrhea simvastatin 20 mg tablet 20 mg PO HS clopidogrel 75 mg tablet 75 mg PO DAILY aspirin 81 mg tablet,delayed release 81 mg PO DAILY zolpidem 10 mg tablet 10 mg PO HS PRN tab PRN Reason: insomnia RX: Cyclobenzaprine HCl [Cyclobenzaprine 5mg Tab] 5 mg PO DAILYP PRN PRN Reason: muschle spasms RX: Gabapentin [Gabapentin 800mg Tab] 800 mg PO TID RX: Furosemide [Furosemide 80mg Tab] 80 mg PO BID RX: Lisinopril [Lisinopril 10mg Tab] 10 mg PO DAILY Citalopram Hydrobromide [Celexa 10mg Tablet] 10 mg PO DAILY Insulin Glargine,Hum.rec.anlog [Lantus Insulin 100units/mL 10mL vial] 60 unit SQ HS RX: Carvedilol [Carvedilol 3.125mg Tab] 3.125 mg PO BID RX: diazePAM [diazePAM 5mg Tablet] 5 mg PO BIDP PRN PRN Reason: Anxiety
[2018-06-10 07:31] LABS: Lymphocytes % 9 % (10-50); Monocytes % 2 % (2-9); Neutrophils % 89 % (42-76); Total Cells Counted 100
[2018-06-10 07:32] LABS: Hypochromasia 1+
[2018-06-10 08:04] VITALS: BP 114/55
== END 2018-06-10 12:45 | disposition hospice, home (50) ==
LOC: 2ND 19:53 → ER 19:53 → OBSVTOIN 23:20 → 2ND 23:25
PROVIDERS: ADMIT Family Medicine; ATTEND Family Medicine